=== PATIENT | male | born 1945 | race Caucasian/White ===

== ENCOUNTER → 2016-08-16 | Outpatient (CLI) | payer OTHER ==
[~2016-08-16] MED LIST: AMLO-114 PO; ASPI-461 PO; CHOL1TAB2 PO; COEN200C4 PO; CRD4 PO; CYAN10005 PO; GLC500 PO; INSUINJ12 SC; LISI-788 PO; OMEGCAP2 PO; PRAV20TA PO; PRLSR20 PO; REPA0.5T PO
[2016-08-16 12:54] LABS: ESTIMATED AVERAGE GLUCOSE 157 mg/dl; HA1C FLAG Normal (Normal)
--- NOTE | 2016-08-22 12:19 | CODING QUERY MEDICAL NECESSITY ---
SUPPORTING DIAGNOSIS NEEDED A supporting diagnosis is required for the test/procedure performed on this patient in order for us to be reimbursed by the patient's insurance. Please provide a supporting diagnosis for the following test/procedure listed below next to the test name along with your signature. *If there is no additional diagnosis for this patient that would support the following test/procedure please document that below next to the test/procedure. Test(s)/Procedure(s) that require a supporting diagnosis: DOS 08/16 * Hba1c DIAGNOSIS: Provider Signature: Date: Thank you Shena Grijalva [facility] Information Management Once completed, please kindly fax back to [phone] For questions please call [phone]
== END | disposition home or self-care (01) ==
LOC: C.LABBFT 07:34
PROVIDERS: ATTEND Internal Medicine Endocrinology, Diabetes & Metabolism
DX: G47.00 Insomnia, unspecified (principal); E78.5 Hyperlipidemia, unspecified; E11.49 Type 2 diabetes mellitus with other diabetic neurological complication

== ENCOUNTER → 2016-11-15 | Outpatient (CLI) | payer OTHER ==
[2016-11-15 12:24] LABS: BASO % 0.7 %; BASO ABS # 0.05 K/uL (0-0.2); COMPLETE YES; EOS % 6.3 %; HEMATOCRIT 43.7 % (42-52); IG% 0.3 %; LYMPH % 23.6 %; MEAN CELL VOLUME 89.5 fL (80-100); MEAN CORPUSCULAR HEMOGLOBIN 32.2 pg (25-34); MEAN CORPUSCULAR HGB CONC 35.9 g/dl (32-36); MEAN PLATELET VOLUME 9.7 fL (7.4-10.4); MONO % 10.2 %; NEUT % 58.9 %; PLATELET COUNT 272 K/uL (130-400); RED BLOOD COUNT 4.88 M/uL (4.7-6.1); WHITE BLOOD COUNT 7.63 K/uL (4.8-10.8)
[2016-11-15 12:30] LABS: MANUAL MICROSCOPIC REQUIRED? NO; REVIEW REQ? NO; URINE APPEARANCE CLEAR (CLEAR); URINE BILIRUBIN NEG (NEG); URINE COLOR YELLOW; URINE EPITHELIAL CELL AUTO 0-5 /lpf (0-5); URINE NITRITE NEG (NEG); URINE SPECIFIC GRAVITY 1.012 (1.000-1.030); UROBILINOGEN NEG (NEG); ZZUR CULT IF INDIC CLEAN CATCH NO
[2016-11-15 12:37] LABS: ESTIMATED AVERAGE GLUCOSE 157 mg/dl; HA1C FLAG Normal (Normal)
[2016-11-15 13:05] LABS: ALT/SGPT 36 U/L (12-78); AST/SGOT 23 U/L (15-37); BLOOD UREA NITROGEN 17 mg/dl (7-18); BUN/CREATININE RATIO 14.5 (10-20); CALCIUM 9.6 mg/dl (8.5-10.1); CARBON DIOXIDE 33 mmol/L (21-32); CHLORIDE 100 mmol/L (98-107); GLUCOSE 117 mg/dl (70-99); HDL CHOLESTEROL 33 mg/dl; POTASSIUM 3.7 mmol/L (3.5-5.1); SODIUM 138 mmol/L (136-145); TRIGLYCERIDES 265 mg/dl (0-150); VERY LOW DENSITY LIPOPROT CALC 53 mg/dl
[2016-11-15 13:13] LABS: ALKALINE PHOSPHATASE 55 U/L (45-117); CHOLESTEROL 226 mg/dl (0-200); CHOLESTEROL/HDL RATIO 6.8; LDL CHOLESTEROL CALCULATED 140 mg/dl
== END | disposition home or self-care (01) ==
LOC: C.LAB1850 11:00
PROVIDERS: ATTEND Nurse Practitioner Adult Health
DX: E11.49 Type 2 diabetes mellitus with other diabetic neurological complication (principal); I10 Essential (primary) hypertension; E78.5 Hyperlipidemia, unspecified

== ENCOUNTER → 2017-01-02 | Outpatient (CLI) | payer OTHER ==
--- NOTE | 2017-01-02 09:42 | DIAGNOSTIC IMAGING REPORT ---
KUB HISTORY:71 [id number] Benign prostatic hypertrophy with urinary [id number] COMPARISON: 11/03/2015 TECHNIQUE: KUB radiograph FINDINGS: No urolith identified. Bowel gas pattern is nonobstructive. No acute fracture. 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 Multilevel degenerative changes are seen throughout the spine. Imaged lung bases are clear. IMPRESSION: 1. No urolithiasis identified. 2. Nonobstructive bowel gas pattern. The above report was generated using voice recognition software. It may contain grammatical, syntax or spelling errors. Electronically signed by: Jhonatan Matthews 01/02/2017 9:40 AM Dictated Date/Time: 01/02/2017 9:38 AM
== END | disposition home or self-care (01) ==
LOC: C.RAD 09:11
PROVIDERS: ATTEND Urology
DX: N40.1 Benign prostatic hyperplasia with lower urinary tract symptoms (principal); N21.0 Calculus in bladder

== ENCOUNTER → 2017-02-28 | Outpatient (CLI) | payer OTHER ==
[2017-02-28 17:37] LABS: ALT/SGPT 54 U/L (12-78); AST/SGOT 32 U/L (15-37)
[2017-03-01 06:21] LABS: ESTIMATED AVERAGE GLUCOSE 151 mg/dl; HA1C FLAG Normal (Normal)
== END | disposition home or self-care (01) ==
LOC: C.LAB1850 16:17
PROVIDERS: ATTEND Nurse Practitioner Adult Health
DX: E11.49 Type 2 diabetes mellitus with other diabetic neurological complication (principal); K76.0 Fatty (change of) liver, not elsewhere classified; Z78.9 Other specified health status; E78.5 Hyperlipidemia, unspecified

== ENCOUNTER → 2017-09-05 | Outpatient (CLI) | payer OTHER | END | disposition home or self-care (01) | LOC: C.LABBFT 13:44 | PROVIDERS: ATTEND Internal Medicine | DX: R19.7 Diarrhea, unspecified (principal) ==

== ENCOUNTER → 2017-10-03 | Outpatient (CLI) | payer OTHER ==
[2017-10-03 12:50] LABS: BASO % 0.6 %; BASO ABS # 0.04 K/uL (0-0.2); EOS % 3.1 %; EOS ABS # 0.22 K/uL (0-0.5); HEMATOCRIT 39.1 % (42-52); HEMOGLOBIN 14.3 g/dL (14.0-18.0); IG# 0.03 K/uL (0.00-0.02); LYMPH % 20.7 %; LYMPH ABS # 1.46 K/uL (1.2-3.4); MEAN CELL VOLUME 88.1 fL (80-100); MEAN CORPUSCULAR HEMOGLOBIN 32.2 pg (25-34); MEAN CORPUSCULAR HGB CONC 36.6 g/dl (32-36); MONO % 10.5 %; MONO ABS # 0.74 K/uL (0.11-0.59); NEUT % 64.7 %; NEUT ABS # 4.56 K/uL (1.4-6.5); PLATELET COUNT 289 K/uL (130-400); RED CELL DISTRIBUTION WIDTH SD 41.8 fL (36.4-46.3); WHITE BLOOD COUNT 7.05 K/uL (4.8-10.8)
[2017-10-03 13:01] LABS: HEMOGLOBIN A1C 6.7 % (4.5-5.6)
[2017-10-03 13:11] LABS: ALT/SGPT 36 U/L (12-78); AST/SGOT 24 U/L (15-37); BLOOD UREA NITROGEN 15 mg/dl (7-18); CREATININE 1.23 mg/dl (0.60-1.40)
[2017-10-03 13:12] LABS: LDL CHOLESTEROL (DIRECT) 88 mg/dl
== END | disposition home or self-care (01) ==
LOC: C.LABBFT 10:31
PROVIDERS: ATTEND Physician Assistant Medical
DX: E11.49 Type 2 diabetes mellitus with other diabetic neurological complication (principal); Z79.4 Long term (current) use of insulin; E78.5 Hyperlipidemia, unspecified; R19.7 Diarrhea, unspecified

== ENCOUNTER → 2017-10-09 | Outpatient (CLI) | payer OTHER ==
[~2017-10-09] MED LIST changes: +OPTIRAY 320 IV PRN
--- NOTE | 2017-10-09 15:28 | DIAGNOSTIC IMAGING REPORT ---
ABD/PELVIS IV AND ORAL CONT CLINICAL HISTORY: 72 years-old Male presenting with R19.7 Diarrhea. TECHNIQUE: Multidetector CT of the abdomen and pelvis was performed after the administration of oral and intravenous contrast. IV contrast: 93 mL of Optiray 320. A dose lowering technique was used consistent with the principles of ALARA (as low as reasonably achievable). COMPARISON: 11/08/2012. CT DOSE (mGy.cm): The estimated cumulative dose is 480.36 mGy.cm. FINDINGS: Micro Paleontologist topogram: Unremarkable. Lung bases: Minimal basilar opacities, likely atelectasis. Mild bronchial wall thickening in the right lower lobe. Smooth interlobular septal thickening suggested. Subtle nodularity in a subpleural location along the medial basal right lower lobe is unchanged. Normal heart size. No pericardial or pleural effusion. Liver: Normal morphology. No liver lesion. Patent hepatic vasculature. Biliary: No intrahepatic or extrahepatic biliary ductal dilatation. Normal gallbladder. Pancreas: Normal. Spleen: Normal. Adrenal glands: Normal. Kidneys and ureters: Normal. No hydronephrosis. Bladder: Circumferential bladder wall thickening. Pelvic organs: Prostate enlargement likely secondary to benign prostatic hyperplasia. Bowel: Normal. No bowel obstruction. Peritoneal cavity: No free fluid or intraperitoneal gas. 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 Lymph nodes: No enlarged lymph nodes in the abdomen or pelvis. Vasculature: Atherosclerosis of the normal caliber abdominal aorta. IVC patent. Abdominal wall: Infiltration and skin thickening along the anterior abdominal wall greater on the left. Musculoskeletal: Degenerative changes of the spine. IMPRESSION: 1. No acute intra-abdominal pathology. No bowel obstruction. 2. Anterior abdominal wall skin thickening and subcutaneous infiltration could represent synovitis or be secondary to medication administration. Correlate clinically. 3. Chronic bladder outlet obstruction in the setting of prostatomegaly. 4. Mild congestive changes versus bronchitis suggested in the right lower lobe. Electronically signed by: Jose Maria Rivera M.D. 10/09/2017 3:26 PM Dictated Date/Time: 10/09/2017 3:20 PM
== END | disposition home or self-care (01) ==
LOC: C.CTS 14:43
PROVIDERS: ATTEND Physician Assistant Medical
DX: R93.5 Abnormal findings on diagnostic imaging of other abdominal regions, including retroperitoneum (principal); N40.1 Benign prostatic hyperplasia with lower urinary tract symptoms; R19.7 Diarrhea, unspecified

== ENCOUNTER 2023-04-13 20:39 | Observation (INO) ==
--- NOTE | 2023-04-13 20:43 | Emergency Department Note ---
Impression & Plan COPD (chronic obstructive pulmonary disease), Hypoxia, Hilar lymphadenopathy, LAD (lymphadenopathy), mediastinal, Hypomagnesemia ED Provider Note NAME: CORNELL GLASS AGE: 78 SEX: M ARRIVES VIA: Ambulance INFORMANT: Patient ED PROVIDER(S): Marco Zuniga MD CHIEF COMPLAINT: Low oxygen, referred. PLAN: Disposition: Admit MEDICAL DECISION MAKING: The patient is a pleasant 78-year-old gentleman with a past medical history of IDDM 2, ADALID, COPD, history of mediastinal and hilar lymphadenopathy who presents to the emergency department via EMS for evaluation of hypoxia with O2 saturation at home down to 79% on room air when awake but did improve somewhat to the mid 80s and once on his nocturnal oxygen for sleep was improved to the low 90s which occurs in the setting of having outpatient bronchoscopy/endobronchial ultrasound and biopsy today. The patient describes that he did not necessarily initially feel short of breath but thought it would be important to monitor his oxygen after his procedure and so his obtained a home pulse oximeter at the [facility] and began monitoring his O2. He does not regularly do this. However due to persistent low measurements he contacted pulmonology who referred the patient to the emergency department due to continued low readings despite attempting numerous repeat measurements. Per records, the patient has had mediastinal and bilateral hilar lymphadenopathy dating back to CT in 2021. The patient denies any chest pain or significant shortness of breath. He reports feeling fatigue and weakness. He denies nausea, vomiting or diarrhea. Appreciate call-in discussion with Dr. Moncada, Pulmonology, who performed bronchoscopy today and spoke to patient tonight. On evaluation the patient is no acute distress, afebrile blood pressure 170/80s, O2 saturation 94% on 2 L nasal cannula and vital signs otherwise stable. Upon trial of room air patient's O2 did decline to 87% and so placed back on oxygen. He appears clinically dry with capillary refill~3s. He has wheezes of bilateral lung scott, right greater than left. EKG without overt acute ischemia. Per my preliminary review chest x-ray is with out PTX and demonstrates vascular congestion with interstitial thickening and nodularity throughout both lungs similar to postprocedure chest x-ray from earlier today. Left midlung also opacities appear similar. WBC 12.6K, nonspecific. Hemoglobin and platelets within normal limits. Chemistry without metabolic acidosis. Magnesium 1.3 with repletion initiated. High-sensitivity troponin 15.1, within normal limits. Patient was treated with DuoNeb given patient's bronchospasm in addition to 500 cc of normal saline. The patient did report some improvement with nebulizer treatment though still with persistence of bronchospasm which she reports is not his baseline necessarily. Thus given additional IV steroids. For component of vascular congestion 20 mg of IV Lasix ordered following initial hydration provided. Given mild hypoxia from baseline and findings above the patient and family agree with plan for admission for further management. Case was discussed with ARELY Tafoya hospitalist, who will evaluate the patient for admission. Triage Nursing notes reviewed and agree them. Prior/outside medical records reviewed Vital Signs: reviewed Differential diagnosis: Reactive airway disease, pneumonia, pneumothorax, COPD, CHF, infections, cardiac ischemia, pulmonary embolism, musculoskeletal, gastrointestinal, as well as other pathologies. ER treatment provided: See below. Diagnostics interpreted by me: ECG: Sinus rhythm with sinus arrhythmia, occasional PVCs, 80 bpm, no overt ST elevation or depression, QTc 424, QRS 96. Cardiac Monitoring: An order for continuous cardiac monitoring was placed and demonstrated Sinus rhythm with sinus arrhythmia, occasional PVCs, 80 bpm. Laboratory studies: See below Imaging studies: See below Consultation(s): Case was discussed with ARELY Tafoya hospitalist, who will evaluate the patient for admission. HPI: The patient is a pleasant 78-year-old gentleman with a past medical history of IDDM 2, ADALID, COPD, history of mediastinal and hilar lymphadenopathy who presents to the emergency department via EMS for evaluation of hypoxia with O2 saturation at home down to 79% on room air when awake but did improve somewhat to the mid 80s and once on his nocturnal oxygen for sleep was improved to the low 90s which occurs in the setting of having outpatient bronchoscopy/endobronchial ultrasound and biopsy today. The patient describes that he did not necessarily initially feel short of breath but thought it would be important to monitor his oxygen after his procedure and so his obtained a home pulse oximeter at the pharmacy and began monitoring his O2. He does not regularly do this. However due to persistent low measurements he contacted pul monology who referred the patient to the emergency department due to continued low readings despite attempting numerous repeat measurements. Per records, the patient has had mediastinal and bilateral hilar lymphadenopathy dating back to CT in 2021. The patient denies any chest pain or significant shortness of breath. He reports feeling fatigue and weakness. He denies nausea, vomiting or diarrhea. Appreciate call-in discussion with Dr. Moncada, Pulmonology, who performed bronchoscopy today and spoke to patient tonight. ROS: See above HPI for pertinent positives & negatives. A total of 10 systems reviewed and were otherwise negative. VITALS:See Below PHYSICAL EXAMINATION: GENERAL: Awake, alert, in no distress HENT: Normocephalic, atraumatic. Oropharynx with dry mucous membranes and otherwise unremarkable. EYES: Normal conjunctiva. Sclera non-icteric. NECK: Supple. No nuchal rigidity. FROM. No JVD. RESPIRATORY: Wheezes of bilateral lung scott, right greater than left. CARDIAC: Regular rate, normal rhythm. Extremities warm and well perfused. Pulses equal. ABDOMEN: Soft, non-distended. No tenderness to palpation. No rebound or guarding. No masses. RECTAL: Deferred. MUSCULOSKELETAL: Chest examination reveals no tenderness. The back is symmetrical on inspection without obvious abnormality. There is no CVA tenderness to palpation. No joint edema. LOWER EXTREMITIES: Calves are equal size bilaterally and non-tender. No edema. No discoloration. NEURO: Normal sensorium. No sensory or motor deficits noted. SKIN: No rash or jaundice noted. Marco Zuniga MD Past Med/Surg History Medical History Celestin's esophagus BPH (benign prostatic hyperplasia) COPD (chronic obstructive pulmonary disease) Degenerative cervical spinal stenosis Diabetic peripheral neuropathy Dyslipidemia Fatty liver disease, nonalcoholic GERD (gastroesophageal reflux disease) History of COVID-19 2021- resolved Hyperlipidemia Hypertension Insomnia Kidney stone Hx Lumbar degenerative disc disease Mixed restrictive and obstructive lung disease Multiple pulmonary nodules ADALID (obstructive sleep apnea) CPAP Overweight (BMI 25.0-29.9) Polyneuropathy Skin cancer Hx basal cell Type 2 diabetes mellitus with neurologic complication, with long-term current use of insulin Surgical History History of appendectomy History of cataract surgery History of colonoscopy History of esophagogastroduodenoscopy (EGD) History of prostate surgery green light vaporization with cystoscopy and laser lithotripsy History of tonsillectomy Family History Mother Family history of diabetes mellitus Father Family history of diabetes mellitus Brother Family history of diabetes mellitus 2 Other No family history of adverse response to anesthesia Denies family history of Ovarian cancer Prostate cancer Coronary heart disease Breast cancer Colorectal cancer Social History Smoking Status: Former smoker Second Hand Exposure: Yes (mother and father smoked); Do You Dip or Chew Tobacco: No; Hx Alcohol Use: Yes Alcohol type: wine Alcohol Intake Frequency: Monthly or Less Hx Substance Use: No Preferred Language: Liberian Communication Ability: Effective Hearing Ability: Normal [place] Required: No Beliefs That Will Affect Care: None marital status: Current Living Situation: Spouse current occupational status: retired Feels Safe at Home: Yes Childhood Exposure to Second-Hand Smoke: Yes Diet: regular caffeine: Yes Dental Care, Regularly: Yes Physical Activity Frequency: 5-6 Times per Week Physical Activity Frequency Comment: walk Seatbelt Use: always Sunscreen Use: No Do you think of yourself as: straight/heterosexual Gender Identity: Male Assistive Devices: Cane, CPAP, Denture - Upper and Glasses Allergies Allergies Allergy/AdvReac Type Severity Reaction Status Date / Time ezetimibe Allergy Intermediate muscle Verified 04/13/23 10:14 aches finasteride Allergy Intermediate difficulty Verified 04/13/23 10:14 urinating, burning sensation gemfibrozil Allergy Intermediate muscle Verified 04/13/23 10:14 aches lovastatin Allergy Intermediate muscle Verified 04/13/23 10:14 aches simvastatin Allergy Intermediate leg Verified 04/13/23 10:14 crampimg and muscle aches tamsulosin Allergy Intermediate difficulty Verified 04/13/23 10:14 urinating, burning sensation sulfamethoxazole [Bactrim] Allergy Unknown hives Verified 04/13/23 10:14 trimethoprim [Bactrim] Allergy Unknown hives Verified 04/13/23 10:14 Home Meds Home Medications Medication Instructions Recorded Confirmed ascorbic acid (vitamin C) 500 mg 500 mg PO QAM 04/19/18 04/13/23 tablet (Vitamin C) aspirin 81 mg tablet,delayed 81 mg PO HS 04/19/18 04/13/23 release (Ninoska Low Dose Aspirin) cyanocobalamin (vitamin B-12) 1,000 mcg PO QAM 04/19/18 04/13/23 1,000 mcg tablet cholecalciferol (vitamin D3) 25 4,000 unit PO QAM 02/04/21 04/13/23 mcg (1,000 unit) tablet melatonin 10 mg tablet 5 mg PO HS PRN Insomnia 02/04/21 04/13/23 psyllium husk (with sugar) 3 1 tsp PO QAM 02/25/21 04/13/23 gram/7 gram oral powder (Daily Fiber (psyllium-sucrose)) Beet Root 1 tab PO DAILY 07/18/21 04/13/23 milk thistle 140 mg capsule 140 mg PO QAM 07/18/21 04/13/23 timolol maleate 0.5 % eye drops 1 drp OPB QAM 07/18/21 04/13/23 coenzyme Q10 100 mg capsule 200 mg PO QAM 08/01/22 04/13/23 (CoQ-10) omega 3-dta-lyf-fish oil 1,000 mg 3 cap PO DAILY 11/29/22 04/13/23 (120 mg-180 mg) capsule (Fish Oil) insulin glargine 100 unit/mL 26 unit subcut .9:00PM 01/05/23 04/13/23 subcutaneous solution (Lantus U-100 Insulin) fluticasone furoate 100 1 inh inhalation QPM 04/13/23 04/13/23 mcg-vilanterol 25 mcg/dose inhalation powder (Breo Ellipta) insulin aspart U-100 100 unit/mL 14 unit subcut TID 04/13/23 04/13/23 (3 mL) subcutaneous pen (Novolog FlexPen U-100 Insulin aspart) losartan 100 1 tab PO QAM 04/13/23 04/13/23 mg-hydrochlorothiazide 25 mg tablet nystatin 100,000 unit/gram topical 1 applic topical BID PRN 04/13/23 04/13/23 cream DIRECTED Previous Rx's Medication Instructions Recorded OneTouch Ultra Blue Test Strip #300 ea 12/30/20 (blood sugar diagnostic) CPAP Machine #1 ea 08/05/22 CPAP Supplies #1 ea 08/05/22 Oxygen Home #1 ea 08/22/22 potassium chloride 20 mEq 10 meq PO QAM #90 tabs 08/29/22 tablet,extended release pen needle, diabetic 32 gauge x #400 ea 11/11/22" (BD Laurita 2nd Gen Pen Needle) rosuvastatin 5 mg tablet 5 mg PO Q2D 90 days #45 tabs 11/16/22 terazosin 5 mg capsule 5 mg PO DAILY #90 caps 11/29/22 omeprazole 40 mg capsule,delayed 40 mg PO HS #90 caps 01/02/23 release albuterol sulfate 90 mcg/actuation 2 puff inhalation Q6H PRN 01/27/23 aerosol inhaler Shortness Of Breath Or Wheezing #18 grams Results & Data (ED) Vital Signs Vital Signs - 24 hr 04/13/23 20:46 04/13/23 20:46 04/13/23 20:46 Temperature 37.1 C Temperature Source Oral Pulse Rate 91 H Pulse Rate [Apical] Respiratory Rate 24 Respiratory Effort / Characteristics Non-Labored Spontaneous Respiratory Depth Shallow Blood Pressure 170/89 H Blood Pressure [Right Arm] Blood Pressure Mean 116 Blood Pressure Mean [Right Arm] Pulse Oximetry 94 94 Oxygen Delivery Method Nasal Cannula Nasal Cannula Nasal Cannula Oxygen Flow Rate 3 3 3 Sepsis Recent Fever Within 48 Hours No Sepsis New/Unexplained Change in Mental Status N/A Sepsis Action Taken by Nursing No Action Required 04/13/23 20:46 04/13/23 21:28 04/13/23 20:28 Temperature Temperature Source Pulse Rate 85 76 Pulse Rate [Apical] 78 Respiratory Rate 22 22 Respiratory Effort / Characteristics Respiratory Depth Blood Pressure Blood Pressure [Right Arm] 170/89 H Blood Pressure Mean Blood Pressure Mean [Right Arm] 116 Pulse Oximetry 94 94 Oxygen Delivery Method Nasal Cannula Nasal Cannula Oxygen Flow Rate 2 2 Sepsis Recent Fever Within 48 Hours Sepsis New/Unexplained Change in Mental Status Sepsis Action Taken by Nursing 04/13/23 22:30 04/13/23 23:15 Temperature Temperature Source Pulse Rate Pulse Rate [Apical] 75 74 Respiratory Rate 22 20 Respiratory Effort / Characteristics Respiratory Depth Blood Pressure Blood Pressure [Right Arm] 179/90 H 187/93 H Blood Pressure Mean Blood Pressure Mean [Right Arm] 119 124 Pulse Oximetry 94 100 Oxygen Delivery Method Nasal Cannula Room Air Oxygen Flow Rate 2 Sepsis Recent Fever Within 48 Hours Sepsis New/Unexplained Change in Mental Status Sepsis Action Taken by Nursing Laboratory Data Attestation: I reviewed the patient's lab results. 04/13/23 20:57 04/13/23 20:57 Lab Results 04/13/23 04/13/23 04/13/23 Range/Units 20:57 20:57 20:57 WBC 12.63 H (4.8-10.8) K/ul RBC 4.49 L (4.70-6.10) M/uL Hgb 14.6 (14.0-18.0) g/dl Hct 41.1 L (42.0-52.0) % MCV 91.5 (80.0-100.0) fL MCH 32.5 (25.0-34.0) pg MCHC 35.5 (32.0-36.0) g/dL RDW Std Deviation 42.0 (36.4-46.3) fL RDW Coeff of Delgado 12.6 (11.5-14.5) % Plt Count 215 (130-400) K/uL MPV 10.2 (9.4-12.4) fL Immature Gran % (Auto) 0.4 % Neut % (Auto) 80.5 % Lymph % (Auto) 7.2 % [place] % (Auto) 8.6 % Eos % (Auto) 2.8 % Baso % (Auto) 0.5 % Neut # (Auto) 10.18 H (1.40-6.50) K/uL Lymph # (Auto) 0.91 L (1.20-3.40) K/uL [place] # (Auto) 1.08 H (0.11-0.59) K/uL Eos # (Auto) 0.35 (0.00-0.50) K/uL Baso # (Auto) 0.06 (0.00-0.20) K/uL Immature Gran # (Auto) 0.05 (0.01-0.20) K/uL PT 11.9 (9.0-12.0) Seconds INR 1.1 (0.9-1.1) Sodium 137 (136-145) mmol/L Potassium 3.9 (3.5-5.1) mmol/L Chloride 99 (98-107) mmol/L Carbon Dioxide 29 (21-32) mmol/L Anion Gap 9 (3-11) BUN 17 (6-23) mg/dl Creatinine 0.95 (0.6-1.4) mg/dl Est Cr Clr Drug Dosing 67.6 ml/min Est GFR ( Amer) 87.3 ml/min Est GFR (Non-Af Amer) 75.3 ml/min BUN/Creatinine Ratio 17.9 (10-20) Glucose 154 H (70-99(Fasting)) mg/dl Calcium 10.1 (8.6-10.3) mg/dl Magnesium 1.3 L (1.7-2.4) mg/dl Total Bilirubin 1.2 H (0.2-1.0) mg/dl AST 23 (13-39) U/L ALT 20 (7-52) U/L Alkaline Phosphatase 52 (34-104) U/L Troponin I High Sens 15.1 (0-20) pg/ml B-Natriuretic Peptide (0-100) pg/ml Total Protein 7.3 (6.0-8.3) gm/dl Albumin 4.2 (3.4-5.0) gm/dl Globulin 3.1 (2.5-4.0) gm/dl Albumin/Globulin Ratio 1.4 (0.9-2) Lipase 15 (11-82) U/L Procalcitonin (0-0.5) ng/ml 04/13/23 04/13/23 Range/Units 20:57 22:58 WBC (4.8-10.8) K/ul RBC (4.70-6.10) M/uL Hgb (14.0-18.0) g/dl Hct (42.0-52.0) % MCV (80.0-100.0) fL MCH (25.0-34.0) pg MCHC (32.0-36.0) g/dL RDW Std Deviation (36.4-46.3) fL RDW Coeff of Delgado (11.5-14.5) % Plt Count (130-400) K/uL MPV (9.4-12.4) fL Immature Gran % (Auto) % Neut % (Auto) % Lymph % (Auto) % [place] % (Auto) % Eos % (Auto) % Baso % (Auto) % Neut # (Auto) (1.40-6.50) K/uL Lymph # (Auto) (1.20-3.40) K/uL [place] # (Auto) (0.11-0.59) K/uL Eos # (Auto) (0.00-0.50) K/uL Baso # (Auto) (0.00-0.20) K/uL Immature Gran # (Auto) (0.01-0.20) K/uL PT (9.0-12.0) Seconds INR (0.9-1.1) Sodium (136-145) mmol/L Potassium (3.5-5.1) mmol/L Chloride (98-107) mmol/L Carbon Dioxide (21-32) mmol/L Anion Gap (3-11) BUN (6-23) mg/dl Creatinine (0.6-1.4) mg/dl Est Cr Clr Drug Dosing ml/min Est GFR ( Amer) ml/min Est GFR (Non-Af Amer) ml/min BUN/Creatinine Ratio (10-20) Glucose (70-99(Fasting)) mg/dl Calcium (8.6-10.3) mg/dl Magnesium (1.7-2.4) mg/dl Total Bilirubin (0.2-1.0) mg/dl AST (13-39) U/L ALT (7-52) U/L Alkaline Phosphatase (34-104) U/L Troponin I High Sens (0-20) pg/ml B-Natriuretic Peptide 65 (0-100) pg/ml Total Protein (6.0-8.3) gm/dl Albumin (3.4-5.0) gm/dl Globulin (2.5-4.0) gm/dl Albumin/Globulin Ratio (0.9-2) Lipase (11-82) U/L Procalcitonin < 0.05 (0-0.5) ng/ml Administered Medications Discontinued Medications Albuterol (Albut/Ipratrop 3mg/0.5mg Neb 3 Ml Vial) 3 ml NEB NOW STA; Protocol Stop: 04/13/23 21:33 Last Admin: 04/13/23 21:38 Dose: 3 ml Documented By: BLOSSOM Furosemide (Furosemide Inj 20 Mg/2 Ml Vial) 20 mg IV ONE ONE Stop: 04/13/23 22:27 Last Admin: 04/13/23 23:11 Dose: 20 mg Documented By: LATESHA Sodium Chloride (Nss) 500 mls @ 999 mls/hr IV .Q31M ONE Stop: 04/13/23 22:02 Last Infusion: 04/13/23 22:50 Dose: 999 mls/hr Documented By: Admin: 04/13/23 21:39 Dose: 999 mls/hr Documented By: BLOSSOM Magnesium Sulfate/Dextrose (Magnesium Sulfate / D5w) 1 gm in 100 mls @ 100 mls/hr IV Q1H ISAIAH Stop: 04/14/23 00:06 Last Admin: 04/13/23 23:14 Dose: 100 mls/hr Documented By: LATESHA Methylprednisolone (Methylprednisolone 125 Mg/2 Ml Vial) 125 mg IV NOW STA Stop: 04/13/23 22:47 Last Admin: 04/13/23 23:11 Dose: 125 mg Documented By: LATESHA Imaging Data My Impression: CXR: Per my preliminary review chest x-ray is without PTX and demonstrates vascular congestion with interstitial thickening and nodularity throughout both lungs similar to postprocedure chest x-ray from earlier today. Left midlung also opacities appear similar. Discharge Plan Visit Data Chief Complaint: Shortness of Breath/Dyspnea Stated Complaint: LOW O2, RECENT BIOPSY ED Provider: Marco Zuniga Discharge Problem: COPD (chronic obstructive pulmonary disease), Hypoxia, Hilar lymphadenopathy, LAD (lymphadenopathy), mediastinal, Hypomagnesemia Forms Stand Alone Forms: My [facility] [employer] Prescriptions Prescriptions: No Action (DME) OneTouch Ultra Blue Test Strip Strip See Rx Instructions .ROUTE .MEDSUPPLY Qty: 300 3RF Rx Instructions: test blood sugar 3 x daily potassium chloride 20 mEq tablet extended release 10 meq PO QAM Qty: 90 3RF (DME) pen needle, diabetic [BD Laurita 2nd Gen Pen Needle] 32 gauge x 5/32" needle See Rx Instructions miscellaneous .MEDSUPPLY Qty: 400 3RF Rx Instructions: Change new pen needle 4x a day terazosin 5 mg capsule 5 mg PO DAILY Qty: 90 3RF omeprazole 40 mg capsule,delayed release(DR/EC) 40 mg PO HS Qty: 90 3RF (DME) CPAP Machine Misc See Rx Instructions .MEDSUPPLY Qty: 1 0RF Rx Instructions: CPAP 10 cm of water with a C-Flex of 1 and oxygen 1 L/min bled into it, ResMed AirFit F20 medium full mask. G47.33 (DME) CPAP Supplies Misc See Rx Instructions .MEDSUPPLY Qty: 1 0RF Rx Instructions: CPAP supplies, mask, headgear, filters, tubing, water chamber. G47.33 (DME) Oxygen Home Liters Per Minute See Rx Instructions .MEDSUPPLY Qty: 1 0RF Rx Instructions: 1 L oxygen bled into the CPAP albuterol sulfate 90 mcg/actuation HFA aerosol inhaler 2 puff inhalation Q6H PRN (Reason: Shortness Of Breath Or Wheezing) Qty: 18 3RF cholecalciferol (vitamin D3) 25 mcg (1,000 unit) tablet 4,000 unit PO QAM melatonin 10 mg tablet 5 mg PO HS PRN (Reason: Insomnia) rosuvastatin 5 mg tablet 5 mg PO Q2D 90 Days Qty: 45 2RF cyanocobalamin (vitamin B-12) 1,000 mcg Tablet 1,000 mcg PO QAM aspirin [Ninoska Low Dose Aspirin] 81 mg Tablet,Delayed Release (Dr/Ec) 81 mg PO HS ascorbic acid (vitamin C) [Vitamin C] 500 mg Tablet 500 mg PO QAM omega 5-zfp-wpi-fish oil [Fish Oil] 1,000 mg (120 mg-180 mg) capsule 3 cap PO DAILY Rx Instructions: 2 tabs am, 1 tab pm losartan-hydrochlorothiazide 100-25 mg tablet 1 tab PO QAM Rx Instructions: Take 1 tablet by mouth once daily nystatin 100,000 unit/gram cream 1 applic topical BID PRN (Reason: DIRECTED) insulin aspart U-100 [Novolog FlexPen U-100 Insulin] 100 unit/mL (3 mL) insulin pen 14 unit subcut TID MDD 45 unit fluticasone furoate-vilanterol [Breo Ellipta] 100-25 mcg/dose blister with device 1 inh inhalation QPM Daily Fiber (psyllium-sucrose) 3 gram/7 gram Powder 1 tsp PO QAM milk thistle 140 mg Capsule 140 mg PO QAM Beet Root 1 tab PO DAILY timolol maleate 0.5 % drops 1 drp OPB QAM coenzyme Q10 [CoQ-10] 100 mg capsule 200 mg PO QAM insulin glargine [Lantus U-100 Insulin] 100 unit/mL solution 26 unit subcut .9:00PM Rx Instructions: Inject Lantus 1x a day 26 units. (This replaces your NPH or cloudy insulin) Referrals Referrals: Manan Holt MD [Primary Care Provider] - COPD (chronic obstructive pulmonary disease) Qualifiers: COPD type: unspecified COPD Qualified Code(s): J44.9 - Chronic obstructive pulmonary disease, unspecified
[2023-04-13 21:27] LABS: Basophils # (auto) 0.06 K/uL (0.00-0.20); Basophils % (auto) 0.5 %; Eosinophils # (auto) 0.35 K/uL (0.00-0.50); Eosinophils % (auto) 2.8 %; Hematocrit (blood only) 41.1 % (42.0-52.0); Hemoglobin 14.6 g/dl (14.0-18.0); Immature Granulocytes # (auto) 0.05 K/uL (0.01-0.20); Immature Granulocytes % (auto) 0.4 %; Lymphocytes # (auto) 0.91 K/uL (1.20-3.40); Lymphocytes % (auto) 7.2 %; Mean Corpuscular Hemoglobin 32.5 pg (25.0-34.0); Mean Corpuscular Hgb Conc 35.5 g/dL (32.0-36.0); Mean Corpuscular Volume 91.5 fL (80.0-100.0); Mean Platelet Volume 10.2 fL (9.4-12.4); Monocytes # (auto) 1.08 K/uL (0.11-0.59); Monocytes % (auto) 8.6 %; Neutrophils # (auto) 10.18 K/uL (1.40-6.50); Neutrophils % (auto) 80.5 %; Platelet Count 215 K/uL (130-400); RDW Coefficient of Variation 12.6 % (11.5-14.5); Red Blood Count 4.49 M/uL (4.70-6.10); White Blood Count 12.63 K/ul (4.8-10.8)
[2023-04-13] MEDS ORDERED: ALBUT/IPRATROP 3MG/0.5MG NEB 3 ML VIAL NEB STA (21:32)
[2023-04-13] MEDS ORDERED: SODIUM CHLORIDE 0.9% 500 ML IV ONE (21:32)
[2023-04-13 21:46] LABS: INR 1.1 (0.9-1.1); Prothrombin Time 11.9 Seconds (9.0-12.0)
[2023-04-13 21:53] LABS: Albumin Globulin Ratio 1.4 (0.9-2); Albumin Level 4.2 gm/dl (3.4-5.0); BUN Creatinine Ratio 17.9 (10-20); Bilirubin,Total 1.2 mg/dl (0.2-1.0); Calcium 10.1 mg/dl (8.6-10.3); Creatinine Clr Calc Pharmacy 67.6 ml/min; Est GFR (African American) 87.3 ml/min; Est GFR (Non-African American) 75.3 ml/min; Globulin 3.1 gm/dl (2.5-4.0); Magnesium 1.3 mg/dl (1.7-2.4); Total Protein 7.3 gm/dl (6.0-8.3); Troponin I High Sensitivity 15.1 pg/ml (0-20)
[2023-04-13 21:59] LABS: Potassium 3.9 mmol/L (3.5-5.1)
[2023-04-13] MEDS ORDERED: FUROSEMIDE INJ 20 MG/2 ML VIAL IV ONE (22:26)
[2023-04-13] MEDS ORDERED: methylPREDNISolone 125 MG/2 ML VIAL IV STA (22:46)
--- NOTE | 2023-04-13 23:07 | History & Physical Report ---
Date of Service April 13, 2023 Assessment & Plan (1) Hypoxia: Plan: 78yo male with COPD, restrictive lung disease s/p EBUS with transbronchial needle aspiration of mediastinal hilar lymph node and BAL of the JESUS performed in [facility] earlier today by Dr. Moncada. The procedure was well tolerated. Pathology specimens pending. Patient reports some elevation of body temperature currently. Diffuse wheezing end-expiratory. Hypoxic on arrival now improved on 2L NC. Ddx to include bronchospasm/COPD, less likely PNA, possible aspiration event during procedure? Patient does not appear to be grossly volume overloaded - he is being given Lasix 20mg IV now. No distress. No pneumothorax. -Admit to medical -Maintain supplemental O2 -Treatment for presumed COPD with DuoNebs q 4 hours, Albuterol nebs q 2 hours PRN, Solumedrol 40mg IV TID -Low threshold to start antibiotics - will hold for now given normal Procalcitonin -Check SARS-CoV-2 (2) COPD (chronic obstructive pulmonary disease): Plan: Management as above -DuoNebs, Albuterol, Solumedrol -Continue Breo-Ellipta (3) ADALID (obstructive sleep apnea): Plan: Chronic. Patient reports compliance with CPAP and nocturnal oxygen at home -Continue CPAP -Supplemental O2 qHS (4) Controlled diabetes mellitus with neurologic complication, with long-term current use of insulin: Plan: Last [id number] on 04/11/23 -Lantus 10u BID -ISS -Goal blood sugar 110-140 (5) Hypertension: Plan: Blood pressure elevated -Continue Losartan/HCTZ History of Present Illness Chief Complaint: hypoxia Primary Care Provider: Manan Holt MD Sunil Cruz is a pleasant 78yo male with history of COPD and restrictive lung disease on nocturnal O2, ADALID on CPAP, HTN, HLP and DM presenting from home with hypoxia. Patient had an EBUS with biopsy performed by Dr. Moncada today. The procedure was uncomplicated and well tolerated. When he returned home he decided to check his pulse oxygen level. He was found to be 79% on room air at rest. He denies chest pain, cough, SOB. No dizziness. He called EMS and was confirmed to be hypoxic at 79%. He was placed on 2L NC which improved saturation to 89%. They increased supplemental O2 to 4L with improvement to 94%. Patient does report some wheezing now as well as dry cough and a mild elevated temperature since the bronchoscopy. In the ER he is afebrile, HD stable. Adequate oxygenation on 2L NC. ER Course: Lasix 20mg IV NSS x 500mL Albuterol 3mL neb Solumedrol 125mg IV Magnesium x 1gm Allergies Allergy/AdvReac Type Severity Reaction Status Date / Time ezetimibe Allergy Intermediate muscle Verified 04/13/23 10:14 aches finasteride Allergy Intermediate difficulty Verified 04/13/23 10:14 urinating, burning sensation gemfibrozil Allergy Intermediate muscle Verified 04/13/23 10:14 aches lovastatin Allergy Intermediate muscle Verified 04/13/23 10:14 aches simvastatin Allergy Intermediate leg Verified 04/13/23 10:14 crampimg and muscle aches tamsulosin Allergy Intermediate difficulty Verified 04/13/23 10:14 urinating, burning sensation sulfamethoxazole [Bactrim] Allergy Unknown hives Verified 04/13/23 10:14 trimethoprim [Bactrim] Allergy Unknown hives Verified 04/13/23 10:14 Home Medications Medication Instructions Recorded Confirmed Type ascorbic acid (vitamin C) 500 mg 500 mg PO QAM 04/19/18 04/13/23 History tablet (Vitamin C) aspirin 81 mg tablet,delayed 81 mg PO HS 04/19/18 04/13/23 History release (Ninoska Low Dose Aspirin) cyanocobalamin (vitamin B-12) 1,000 mcg PO QAM 04/19/18 04/13/23 History 1,000 mcg tablet OneTouch Ultra Blue Test Strip #300 ea 12/30/20 04/13/23 Rx (blood sugar diagnostic) cholecalciferol (vitamin D3) 25 4,000 unit PO QAM 02/04/21 04/13/23 History mcg (1,000 unit) tablet melatonin 10 mg tablet 5 mg PO HS PRN Insomnia 02/04/21 04/13/23 History psyllium husk (with sugar) 3 1 tsp PO QAM 02/25/21 04/13/23 History gram/7 gram oral powder (Daily Fiber (psyllium-sucrose)) Beet Root 1 tab PO DAILY 07/18/21 04/13/23 History milk thistle 140 mg capsule 140 mg PO QAM 07/18/21 04/13/23 History timolol maleate 0.5 % eye drops 1 drp OPB QAM 07/18/21 04/13/23 History coenzyme Q10 100 mg capsule 200 mg PO QAM 08/01/22 04/13/23 History (CoQ-10) CPAP Machine #1 ea 08/05/22 04/13/23 Rx CPAP Supplies #1 ea 08/05/22 04/13/23 Rx Oxygen Home #1 ea 08/22/22 04/13/23 Rx potassium chloride 20 mEq 10 meq PO QAM #90 tabs 08/29/22 04/13/23 Rx tablet,extended release pen needle, diabetic 32 gauge x #400 ea 11/11/22 04/13/23 Rx 5/32" (BD Laurita 2nd Gen Pen Needle) rosuvastatin 5 mg tablet 5 mg PO Q2D 90 days #45 tabs 11/16/22 04/13/23 Rx omega 1-rgf-eec-fish oil 1,000 mg 3 cap PO DAILY 11/29/22 04/13/23 History (120 mg-180 mg) capsule (Fish Oil) terazosin 5 mg capsule 5 mg PO DAILY #90 caps 11/29/22 04/13/23 Rx omeprazole 40 mg capsule,delayed 40 mg PO HS #90 caps 01/02/23 04/13/23 Rx release insulin glargine 100 unit/mL 26 unit subcut .9:00PM 01/05/23 04/13/23 History subcutaneous solution (Lantus U-100 Insulin) albuterol sulfate 90 mcg/actuation 2 puff inhalation Q6H PRN 01/27/23 04/13/23 Rx aerosol inhaler Shortness Of Breath Or Wheezing #18 grams fluticasone furoate 100 1 inh inhalation QPM 04/13/23 04/13/23 History mcg-vilanterol 25 mcg/dose inhalation powder (Breo Ellipta) insulin aspart U-100 100 unit/mL 14 unit subcut TID 04/13/23 04/13/23 History (3 mL) subcutaneous pen (Novolog FlexPen U-100 Insulin aspart) losartan 100 1 tab PO QAM 04/13/23 04/13/23 History mg-hydrochlorothiazide 25 mg tablet nystatin 100,000 unit/gram topical 1 applic topical BID PRN 04/13/23 04/13/23 History cream DIRECTED Past Med/Surg History Medical History Celestin's esophagus BPH (benign prostatic hyperplasia) COPD (chronic obstructive pulmonary disease) Degenerative cervical spinal stenosis Diabetic peripheral neuropathy Dyslipidemia Fatty liver disease, nonalcoholic GERD (gastroesophageal reflux disease) History of COVID-2021- resolved Hyperlipidemia Hypertension Insomnia Kidney stone Hx Lumbar degenerative disc disease Mixed restrictive and obstructive lung disease Multiple pulmonary nodules ADALID (obstructive sleep apnea) CPAP Overweight (BMI 25.0-29.9) Polyneuropathy Skin cancer Hx basal cell Type 2 diabetes mellitus with neurologic complication, with long-term current use of insulin Surgical History History of appendectomy History of cataract surgery History of colonoscopy History of esophagogastroduodenoscopy (EGD) History of prostate surgery green light vaporization with cystoscopy and laser lithotripsy History of tonsillectomy Family History Mother Family history of diabetes mellitus Father Family history of diabetes mellitus Brother Family history of diabetes mellitus 2 Other No family history of adverse response to anesthesia Denies family history of Ovarian cancer Prostate cancer Coronary heart disease Breast cancer Colorectal cancer Social History Smoking Status: Former smoker Second Hand Exposure: Yes (mother and father smoked); Do You Dip or Chew Tobacco: No; Hx Alcohol Use: Yes Alcohol type: wine Alcohol Intake Frequency: Monthly or Less Hx Substance Use: No Preferred Language: Lithuanian Communication Ability: Effective Hearing Ability: Normal Cartography/Mapping Technician Required: No Beliefs That Will Affect Care: None marital status: Current Living Situation: Spouse current occupational status: retired Feels Safe at Home: Yes Childhood Exposure to Second-Hand Smoke: Yes Diet: regular caffeine: Yes Dental Care, Regularly: Yes Physical Activity Frequency: 5-6 Times per Week Physical Activity Frequency Comment: walk Seatbelt Use: always Sunscreen Use: No Do you think of yourself as: straight/heterosexual Gender Identity: Male Assistive Devices: Cane, CPAP, Denture - Upper and Glasses Review of Systems Review of Systems: All systems reviewed & are unremarkable except as noted in HPI & below Physical Exam Physical Exam: General: patient resting comfortably, NAD, non-toxic in appearance, AA&O x 4 Skin: warm, dry, intact, no rashes or lesions HEENT: NC/AT, PERRL, EOMI, anicteric sclera, conjunctiva without injection, external ear normal to inspection and nontender, nares patent, moist mucus membranes, dentition intact, no oropharyngeal lesions, neck supple, trachea midline, no LAD, no thyromegaly, no JVD Heart: +S1/S2, regular, no m/r/g Lungs: equal air entry bilaterally,no rales/rhonchi, diffuse end-expiratory wheezing Abd: +BS, soft, NT/ND, no masses/organomegaly/ascites Ext: warm, 2+ pulses in UE/LE bilaterally, no clubbing/cyanosis or edema Neuro: nonfocal, patient AA&O x 4, speech intact, no facial droop, moving all extremities on command with equal strength 5/5 Results & Data Results & Data Vital Signs (Past 12 Hours) Vital Signs Temp Pulse Pulse Resp BP BP Pulse Ox 04/13/23 20:28 78 22 170/89 H 94 04/13/23 21:28 76 22 94 04/13/23 20:46 85 04/13/23 20:46 94 04/13/23 20:46 37.1 C 91 H 24 170/89 H 94 04/13/23 20:46 O2 Del Method O2 Flow Rate 04/13/23 20:28 Nasal Cannula 2 04/13/23 21:28 Nasal Cannula 2 04/13/23 20:46 04/13/23 20:46 Nasal Cannula 3 04/13/23 20:46 Nasal Cannula 3 04/13/23 20:46 Nasal Cannula 3 Laboratory Results Laboratory Results WBC 12.63 K/ul (4.8-10.8) H 04/13/23 20:57 RBC 4.49 M/uL (4.70-6.10) L 04/13/23 20:57 Hgb 14.6 g/dl (14.0-18.0) 04/13/23 20:57 Hct 41.1 % (42.0-52.0) L 04/13/23 20:57 MCV 91.5 fL (80.0-100.0) 04/13/23 20:57 MCH 32.5 pg (25.0-34.0) 04/13/23 20:57 MCHC 35.5 g/dL (32.0-36.0) 04/13/23 20:57 RDW Std Deviation 42.0 fL (36.4-46.3) 04/13/23 20:57 RDW Coeff of Delgado 12.6 % (11.5-14.5) 04/13/23 20:57 Plt Count 215 K/uL (130-400) 04/13/23 20:57 MPV 10.2 fL (9.4-12.4) 04/13/23 20:57 Immature Gran % (Auto) 0.4 % 04/13/23 20:57 Neut % (Auto) 80.5 % 04/13/23 20:57 Lymph % (Auto) 7.2 % 04/13/23 20:57 Beltrami % (Auto) 8.6 % 04/13/23 20:57 Eos % (Auto) 2.8 % 04/13/23 20:57 Baso % (Auto) 0.5 % 04/13/23 20:57 Neut # (Auto) 10.18 K/uL (1.40-6.50) H 04/13/23 20:57 Lymph # (Auto) 0.91 K/uL (1.20-3.40) L 04/13/23 20:57 Beltrami # (Auto) 1.08 K/uL (0.11-0.59) H 04/13/23 20:57 Eos # (Auto) 0.35 K/uL (0.00-0.50) 04/13/23 20:57 Baso # (Auto) 0.06 K/uL (0.00-0.20) 04/13/23 20:57 Immature Gran # (Auto) 0.05 K/uL (0.01-0.20) 04/13/23 20:57 PT 11.9 Seconds (9.0-12.0) 04/13/23 20:57 INR 1.1 (0.9-1.1) 04/13/23 20:57 Sodium 137 mmol/L (136-145) 04/13/23 20:57 Potassium 3.9 mmol/L (3.5-5.1) 04/13/23 20:57 Chloride 99 mmol/L (98-107) 04/13/23 20:57 Carbon Dioxide 29 mmol/L (21-32) 04/13/23 20:57 Anion Gap 9 (3-11) 04/13/23 20:57 BUN 17 mg/dl (6-23) 04/13/23 20:57 Creatinine 0.95 mg/dl (0.6-1.4) 04/13/23 20:57 Est Cr Clr Drug Dosing 67.6 ml/min 04/13/23 20:57 Est GFR ( Amer) 87.3 ml/min 04/13/23 20:57 Est GFR (Non-Af Amer) 75.3 ml/min 04/13/23 20:57 BUN/Creatinine Ratio 17.9 (10-20) 04/13/23 20:57 Glucose 154 mg/dl (70-99(Fasting)) H 04/13/23 20:57 Calcium 10.1 mg/dl (8.6-10.3) 04/13/23 20:57 Magnesium 1.3 mg/dl (1.7-2.4) L 04/13/23 20:57 Total Bilirubin 1.2 mg/dl (0.2-1.0) H 04/13/23 20:57 AST 23 U/L (13-39) 04/13/23 20:57 ALT 20 U/L (7-52) 04/13/23 20:57 Alkaline Phosphatase 52 U/L (34-104) 04/13/23 20:57 Troponin I High Sens 15.1 pg/ml (0-20) 04/13/23 20:57 B-Natriuretic Peptide 65 pg/ml (0-100) 04/13/23 22:58 Total Protein 7.3 gm/dl (6.0-8.3) 04/13/23 20:57 Albumin 4.2 gm/dl (3.4-5.0) 04/13/23 20:57 Globulin 3.1 gm/dl (2.5-4.0) 04/13/23 20:57 Albumin/Globulin Ratio 1.4 (0.9-2) 04/13/23 20:57 Lipase 15 U/L (11-82) 04/13/23 20:57 Procalcitonin < 0.05 ng/ml (0-0.5) 04/13/23 20:57 Diagnostic Findings CXR from ER - per my interpretation - appears to have some mild increase in airspace opacities, no pneumothorax SINGLE VIEW CHEST CLINICAL HISTORY: Status post bronchoscopy. FINDINGS: An AP, portable, upright chest radiograph is compared to study dated 03/07/2022 and correlated with chest CT dated 04/07/2023. The examination is degraded by portable technique and apical lordotic positioning. The heart is enlarged. There is pulmonary vascular congestion. Foci of probable scarring and nodularity are again seen throughout both lungs. There are new airspace opacities in the left midlung. No large pleural effusion is identified. No pneumothorax is seen. The skeletal structures are osteopenic. The bony thorax is grossly intact. IMPRESSION: 1. No pneumothorax is seen post procedure. 2. Cardiomegaly with pulmonary vascular congestion. 3. There are new airspace opacities in the left midlung which may represent postbiopsy change. Correlate clinically for evidence of a nonspecific pneumonitis. Follow-up radiographically if indicated. ACT 112: Negative or not required by law. Electronically signed by: Saúl Luna M.D. 04/13/2023 1:43 PM Dictated:04/13/23 1341 Transcribed: 04/13/23 1341 ECG Additional Comments: EKG per my interpretation shows ST at 111 bpm, left axis deviation, KI=474, QRs=94, OJp=156, no acute ischemic changes Code Status & VTE Plan VTE Prophylaxis Plan VTE Prophylaxis will be ordered: Yes PG Care Time/CCT Total # of Minutes Spent Total Time Spent with Patient: Total time spent is greater than 50% in coordination of care (as documented) at patient's floor/unit and/or counseling patient: Coding Level of Care Code 39523 INT INP/OBS CARE 3/75MIN Diagnoses Hypoxia R09.02 COPD (chronic obstructive pulmonary disease) J44.9 ADALID (obstructive sleep apnea) G47.33 Controlled diabetes mellitus with neurologic complication, with long-term current use of insulin E11.49; Z79.4 Hypertension I10
[2023-04-13] MEDS: MAGNESIUM SULFATE / D5W 1 GM/100 ML BAG IV SCH (23:14)
[2023-04-14] MEDS: MAGNESIUM SULFATE / D5W 1 GM/100 ML BAG IV SCH (01:19)
[2023-04-14] MEDS ORDERED: CARBOHYDRATES FOR HYPOGLYCEMIA PO PRN (03:46)
[2023-04-14] MEDS ORDERED: ROSUVASTATIN CALCIUM 5 MG TAB PO SCH (03:46)
[2023-04-14] MEDS ORDERED: ALBUTEROL 0.5% NEB SOLN 2.5 MG/0.5 ML VIAL NEB PRN (03:46)
[2023-04-14] MEDS ORDERED: GLUCOSE 10 TAB/TUBE PO PRN (03:46)
[2023-04-14] MEDS ORDERED: ONDANSETRON INJ 2 MG/ML 2 ML VIAL IV PRN (03:46)
[2023-04-14] MEDS ORDERED: GLUCAGON FOR INJ 1 MG VIAL SQ PRN (03:46)
[2023-04-14] MEDS ORDERED: GLUCOSE 40% GEL 15 GM TUBE PO PRN (03:46)
[2023-04-14] MEDS ORDERED: ACETAMINOPHEN 325 MG TAB PO PRN (03:46)
[2023-04-14] MEDS ORDERED: MELATONIN 3 MG TAB PO PRN (03:46)
[2023-04-14] MEDS ORDERED: DEXTROSE 50% 50 ML SYRINGE IV PRN (03:46)
[2023-04-14] MEDS: ALBUT/IPRATROP 3MG/0.5MG NEB 3 ML VIAL NEB SCH ×3 (04:16→10:37)
[2023-04-14 04:28] LABS: Phosphorus 2.8 mg/dl (2.5-4.9)
[2023-04-14] MEDS: methylPREDNISolone 40 MG in SYRINGE 0 ML IV SCH ×2 (05:14→12:27)
[2023-04-14 07:29] LABS: Hematocrit (blood only) 38.9 % (42.0-52.0); Hemoglobin 13.8 g/dl (14.0-18.0); Mean Corpuscular Hemoglobin 32.4 pg (25.0-34.0); Mean Corpuscular Hgb Conc 35.5 g/dL (32.0-36.0); Mean Corpuscular Volume 91.3 fL (80.0-100.0); Platelet Count 212 K/uL (130-400); RDW Coefficient of Variation 12.3 % (11.5-14.5); Red Blood Count 4.26 M/uL (4.70-6.10); White Blood Count 8.79 K/ul (4.8-10.8)
--- NOTE | 2023-04-14 07:33 | XRay Report ---
XR chest 1V portable HISTORY: 78 years-old Male hypoxia after bronch acute hypoxia COMPARISON: Chest radiograph of same day at 1:30 PM, chest CT 04/07/2023 TECHNIQUE: AP view of the chest FINDINGS: Cardiac silhouette is enlarged. Stable linear consolidative perihilar opacities with interstitial coa rsening. Pulmonary vascular congestion. No pneumothorax or large pleural effusion. Degenerative reyes es of the shoulders and spine. IMPRESSION: 1. Cardiomegaly with pulmonary vascular congestion. 2. Stable linear perihilar consolidation with mild reticular nodular opacities, better seen on the pr ior chest CT. ACT 112: Negative or not required by law. The above report was generated using voice recognition software. It may contain grammatical, syntax o r spelling errors. Electronically signed by: Abelino Matthews M.D. 04/14/2023 7:32 AM
--- NOTE | 2023-04-14 07:57 | Hospitalist Progress Note ---
Date of Service April 14, 2023 Assessment & Plan (1) Hypoxia: Plan: 78yo male with COPD, restrictive lung disease s/p EBUS with transbronchial needle aspiration of mediastinal hilar lymph node and BAL of the JESUS performed in Pulmonary Clinic 04/[address] Moncada. The procedure was well tolerated. Pathology specimens pending. Patient reports some elevation of body temperature currently. Diffuse wheezing end-expiratory. Hypoxic on arrival now improved on 2L NC. Ddx to include bronchospasm/COPD, less likely PNA, possible aspiration event during procedure? Patient does not appear to be grossly volume overloaded - he was given Lasix 20mg IV in ER No distress. No pneumothorax. COVID negative On 4L --> down to 2L Reporting less wheezing, +cough but no sputum production Procal negative Mag replacement ordered, mag wnl on repeat Tx COPD/pneuomonitis from bronchoscopy Transitioning IV solumedrol to prednisone 40mg PO daily and plan 5 day course Duonebs, hypertonic saline, mucinex, pulmonary toilet Repeat CXR obtained, +pulmonary edema on review Additional 20mg IV lasix for today -- monitor response/possible low dose diuretic at dc Also educated patient on low salt diet at discharge -- he endorses eating lots of salty snacks/etc (BNP only 65, but can be elevated w/ diastolic HF w/ obesity) Low threshold for empiric abx w/ azithro/doxy --Patient req for pulm consult, placed -- defer to pulm in consult Titrate O2 as able 2step prior to dc Monitor labs on repeat (2) COPD (chronic obstructive pulmonary disease): Plan: Management as above DuoNebs, Albuterol, Solumedrol --> prednisone as above Continue Breo-Ellipta Pulm consulted (3) ADALID (obstructive sleep apnea): Plan: Chronic. Patient reports compliance with CPAP and nocturnal oxygen at home -Continue CPAP HS (not utilized last night) Supplemental O2 qHS (4) Controlled diabetes mellitus with neurologic complication, with long-term current use of insulin: Plan: Last [id number] on 04/11/23 -Lantus 10u BID -ISS -Goal blood sugar 110-140 BSG elevation, likely from 125mg IV steroids --> got BSG check after eaten this morning as [employer] not aware BSG check Additional 5u lantus w/ 10u this morning, additional per pharmacy as consulted for glycemic management Hopefully now that transitioning to prednisone BSGs will be much better -- MONITOR (5) Hypertension: Plan: Blood pressure elevated 174/99 on admission Continues on losartan/HCTZ Lasix 20mg IV x 1 on admission, additional 20mg IV for today LOW SALT DIET DISCUSSED/encouraged as above, better BP control w/ hx diastolic HF Consideration for increasing home HCTZ vs low dose lasix at d/c BP presently 162/71 Plan continued inpatient stay, transitioned to prednisone, additional lasix, pulm consulted BP control PT eval to be obtained Patient is hopeful for discharge tomorrow Admission and Anticipated Discharge Date Admission Date: April 13, 2023 Subjective eval this morning, reported doing better. +cough but not productive. down to 2L NC discussed additional dose of lasix w/ steroids/transition to prednisone as well, possible 2 step he was hopeful for dc but discussed if remaining on O2/need to stay overnight and will hope to dc tomorrow. (He is hopeful to watch [employer] game tomorrow at home). No fever/chills. Questions/concerns addressed at this time. Physical Exam Physical Exam: General: WD/WN male sitting up in bed, NAD HEENT: head atraumatic, normocephalic, mmm, trachea midline Resp: diminished in the bases, end expiratory wheezing posteriorly (R>L soctt), no rales, on 2L NC CV: RRR< no significant m/r/g, trace pedal edema, no calf tenderness GI: +BS, soft/NT ; no trivedi MSK/Neuro: no focal deficit, no slurred speech Psych: AOx3, cooperative with exam Results & Data Results & Data Vital Signs (Past 12 Hours) Vital Signs Temp Pulse Pulse Pulse Resp BP BP 04/14/23 07:22 76 20 04/14/23 04:00 04/14/23 03:46 36.9 C 73 18 165/76 H 04/14/23 04:17 76 18 04/14/23 02:47 04/14/23 02:00 72 22 175/87 H 04/14/23 01:30 72 24 176/92 H 04/13/23 23:30 73 20 150/109 H 04/13/23 23:07 187/93 H 04/13/23 22:13 179/90 H 04/14/23 00:48 72 04/13/23 23:15 74 20 187/93 H 04/13/23 22:30 75 22 179/90 H 04/13/23 20:28 78 22 170/89 H 04/13/23 21:28 76 22 04/13/23 20:46 85 04/13/23 20:46 04/13/23 20:46 37.1 C 91 H 24 170/89 H 04/13/23 20:46 Pulse Ox O2 Del Method O2 Flow Rate 04/14/23 07:22 94 Nasal Cannula 2 04/14/23 04:00 Nasal Cannula 2 04/14/23 03:46 93 Nasal Cannula 2 04/14/23 04:17 94 Nasal Cannula 2 04/14/23 02:47 Nasal Cannula 2 04/14/23 02:00 91 04/14/23 01:30 93 Room Air 04/13/23 23:30 96 04/13/23 23:07 04/13/23 22:13 04/14/23 00:48 04/13/23 23:15 100 Room Air 04/13/23 22:30 94 Nasal Cannula 2 04/13/23 20:28 94 Nasal Cannula 2 04/13/23 21:28 94 Nasal Cannula 2 04/13/23 20:46 04/13/23 20:46 94 Nasal Cannula 3 04/13/23 20:46 94 Nasal Cannula 3 04/13/23 20:46 Nasal Cannula 3 Laboratory Results 04/14/23 04/14/23 04/14/23 Range/Units 11:58 11:57 11:56 WBC (4.8-10.8) K/ul RBC (4.70-6.10) M/uL Hgb (14.0-18.0) g/dl Hct (42.0-52.0) % MCV (80.0-100.0) fL MCH (25.0-34.0) pg MCHC (32.0-36.0) g/dL RDW Std Deviation (36.4-46.3) fL RDW Coeff of Delgado (11.5-14.5) % Plt Count (130-400) K/uL MPV (9.4-12.4) fL Immature Gran % (Auto) % Neut % (Auto) % Lymph % (Auto) % [place] % (Auto) % Eos % (Auto) % Baso % (Auto) % Neut # (Auto) (1.40-6.50) K/uL Lymph # (Auto) (1.20-3.40) K/uL [place] # (Auto) (0.11-0.59) K/uL Eos # (Auto) (0.00-0.50) K/uL Baso # (Auto) (0.00-0.20) K/uL Immature Gran # (Auto) (0.01-0.20) K/uL PT (9.0-12.0) Seconds INR (0.9-1.1) Sodium (136-145) mmol/L Potassium (3.5-5.1) mmol/L Chloride (98-107) mmol/L Carbon Dioxide (21-32) mmol/L Anion Gap (3-11) BUN (6-23) mg/dl Creatinine (0.6-1.4) mg/dl Est Cr Clr Drug Dosing ml/min Est GFR ( Amer) ml/min Est GFR (Non-Af Amer) ml/min BUN/Creatinine Ratio (10-20) Glucose (70-99(Fasting)) mg/dl POC Glucose 318 H* 358 H* 344 H* (70-99) mg/dl Calcium (8.6-10.3) mg/dl Phosphorus (2.5-4.9) mg/dl Magnesium (1.7-2.4) mg/dl Total Bilirubin (0.2-1.0) mg/dl AST (13-39) U/L ALT (7-52) U/L Alkaline Phosphatase (34-104) U/L Troponin I High Sens (0-20) pg/ml B-Natriuretic Peptide (0-100) pg/ml Total Protein (6.0-8.3) gm/dl Albumin (3.4-5.0) gm/dl Globulin (2.5-4.0) gm/dl Albumin/Globulin Ratio (0.9-2) Lipase (11-82) U/L Procalcitonin (0-0.5) ng/ml SARS-CoV-2, RNA, NAAT (NEGATIVE) 10/20/23 10/20/23 10/20/23 Range/Units 08:49 06:56 06:56 WBC 8.79 (4.8-10.8) K/ul RBC 4.26 L (4.70-6.10) M/uL Hgb 13.8 L (14.0-18.0) g/dl Hct 38.9 L (42.0-52.0) % MCV 91.3 (80.0-100.0) fL MCH 32.4 (25.0-34.0) pg MCHC 35.5 (32.0-36.0) g/dL RDW Std Deviation 41.0 (36.4-46.3) fL RDW Coeff of Delgado 12.3 (11.5-14.5) % Plt Count 212 (130-400) K/uL MPV 10.0 (9.4-12.4) fL Immature Gran % (Auto) % Neut % (Auto) % Lymph % (Auto) % [place] % (Auto) % Eos % (Auto) % Baso % (Auto) % Neut # (Auto) (1.40-6.50) K/uL Lymph # (Auto) (1.20-3.40) K/uL [place] # (Auto) (0.11-0.59) K/uL Eos # (Auto) (0.00-0.50) K/uL Baso # (Auto) (0.00-0.20) K/uL Immature Gran # (Auto) (0.01-0.20) K/uL PT (9.0-12.0) Seconds INR (0.9-1.1) Sodium 136 (136-145) mmol/L Potassium 3.5 (3.5-5.1) mmol/L Chloride 97 L (98-107) mmol/L Carbon Dioxide 30 (21-32) mmol/L Anion Gap 9 (3-11) BUN 19 (6-23) mg/dl Creatinine 1.03 (0.6-1.4) mg/dl Est Cr Clr Drug Dosing 59.0 ml/min Est GFR ( Amer) 79.1 ml/min Est GFR (Non-Af Amer) 68.3 ml/min BUN/Creatinine Ratio 18.4 (10-20) Glucose 316 H* (70-99(Fasting)) mg/dl POC Glucose 341 H* (70-99) mg/dl Calcium 9.4 (8.6-10.3) mg/dl Phosphorus (2.5-4.9) mg/dl Magnesium 1.7 (1.7-2.4) mg/dl Total Bilirubin (0.2-1.0) mg/dl AST (13-39) U/L ALT (7-52) U/L Alkaline Phosphatase (34-104) U/L Troponin I High Sens (0-20) pg/ml B-Natriuretic Peptide (0-100) pg/ml Total Protein (6.0-8.3) gm/dl Albumin (3.4-5.0) gm/dl Globulin (2.5-4.0) gm/dl Albumin/Globulin Ratio (0.9-2) Lipase (11-82) U/L Procalcitonin (0-0.5) ng/ml SARS-CoV-2, RNA, NAAT (NEGATIVE) 04/14/23 04/13/23 04/13/23 Range/Units 01:25 22:58 20:57 WBC (4.8-10.8) K/ul RBC (4.70-6.10) M/uL Hgb (14.0-18.0) g/dl Hct (42.0-52.0) % MCV (80.0-100.0) fL MCH (25.0-34.0) pg MCHC (32.0-36.0) g/dL RDW Std Deviation (36.4-46.3) fL RDW Coeff of Delgado (11.5-14.5) % Plt Count (130-400) K/uL MPV (9.4-12.4) fL Immature Gran % (Auto) % Neut % (Auto) % Lymph % (Auto) % [place] % (Auto) % Eos % (Auto) % Baso % (Auto) % Neut # (Auto) (1.40-6.50) K/uL Lymph # (Auto) (1.20-3.40) K/uL [place] # (Auto) (0.11-0.59) K/uL Eos # (Auto) (0.00-0.50) K/uL Baso # (Auto) (0.00-0.20) K/uL Immature Gran # (Auto) (0.01-0.20) K/uL PT (9.0-12.0) Seconds INR (0.9-1.1) Sodium (136-145) mmol/L Potassium (3.5-5.1) mmol/L Chloride (98-107) mmol/L Carbon Dioxide (21-32) mmol/L Anion Gap (3-11) BUN (6-23) mg/dl Creatinine (0.6-1.4) mg/dl Est Cr Clr Drug Dosing ml/min Est GFR ( Amer) ml/min Est GFR (Non-Af Amer) ml/min BUN/Creatinine Ratio (10-20) Glucose (70-99(Fasting)) mg/dl POC Glucose (70-99) mg/dl Calcium (8.6-10.3) mg/dl Phosphorus (2.5-4.9) mg/dl Magnesium (1.7-2.4) mg/dl Total Bilirubin (0.2-1.0) mg/dl AST (13-39) U/L ALT (7-52) U/L Alkaline Phosphatase (34-104) U/L Troponin I High Sens (0-20) pg/ml B-Natriuretic Peptide 65 (0-100) pg/ml Total Protein (6.0-8.3) gm/dl Albumin (3.4-5.0) gm/dl Globulin (2.5-4.0) gm/dl Albumin/Globulin Ratio (0.9-2) Lipase (11-82) U/L Procalcitonin < 0.05 (0-0.5) ng/ml SARS-CoV-2, RNA, NAAT NEGATIVE (NEGATIVE) 04/13/23 04/13/23 04/13/23 Range/Units 20:57 20:57 20:57 WBC 12.63 H (4.8-10.8) K/ul RBC 4.49 L (4.70-6.10) M/uL Hgb 14.6 (14.0-18.0) g/dl Hct 41.1 L (42.0-52.0) % MCV 91.5 (80.0-100.0) fL MCH 32.5 (25.0-34.0) pg MCHC 35.5 (32.0-36.0) g/dL RDW Std Deviation 42.0 (36.4-46.3) fL RDW Coeff of Delgado 12.6 (11.5-14.5) % Plt Count 215 (130-400) K/uL MPV 10.2 (9.4-12.4) fL Immature Gran % (Auto) 0.4 % Neut % (Auto) 80.5 % Lymph % (Auto) 7.2 % [place] % (Auto) 8.6 % Eos % (Auto) 2.8 % Baso % (Auto) 0.5 % Neut # (Auto) 10.18 H (1.40-6.50) K/uL Lymph # (Auto) 0.91 L (1.20-3.40) K/uL [place] # (Auto) 1.08 H (0.11-0.59) K/uL Eos # (Auto) 0.35 (0.00-0.50) K/uL Baso # (Auto) 0.06 (0.00-0.20) K/uL Immature Gran # (Auto) 0.05 (0.01-0.20) K/uL PT 11.9 (9.0-12.0) Seconds INR 1.1 (0.9-1.1) Sodium 137 (136-145) mmol/L Potassium 3.9 (3.5-5.1) mmol/L Chloride 99 (98-107) mmol/L Carbon Dioxide 29 (21-32) mmol/L Anion Gap 9 (3-11) BUN 17 (6-23) mg/dl Creatinine 0.95 (0.6-1.4) mg/dl Est Cr Clr Drug Dosing 67.6 ml/min Est GFR ( Amer) 87.3 ml/min Est GFR (Non-Af Amer) 75.3 ml/min BUN/Creatinine Ratio 17.9 (10-20) Glucose 154 H (70-99(Fasting)) mg/dl POC Glucose (70-99) mg/dl Calcium 10.1 (8.6-10.3) mg/dl Phosphorus 2.8 (2.5-4.9) mg/dl Magnesium 1.3 L (1.7-2.4) mg/dl Total Bilirubin 1.2 H (0.2-1.0) mg/dl AST 23 (13-39) U/L ALT 20 (7-52) U/L Alkaline Phosphatase 52 (34-104) U/L Troponin I High Sens 15.1 (0-20) pg/ml B-Natriuretic Peptide (0-100) pg/ml Total Protein 7.3 (6.0-8.3) gm/dl Albumin 4.2 (3.4-5.0) gm/dl Globulin 3.1 (2.5-4.0) gm/dl Albumin/Globulin Ratio 1.4 (0.9-2) Lipase 15 (11-82) U/L Procalcitonin (0-0.5) ng/ml SARS-CoV-2, RNA, NAAT (NEGATIVE) Diagnostic Findings Chest X-Ray 04/13/23 20:41 XR chest 1V portable HISTORY: 78 years-old Male hypoxia after bronch acute hypoxia COMPARISON: Chest radiograph of same day at 1:30 PM, chest CT 04/07/2023 TECHNIQUE: AP view of the chest FINDINGS: Cardiac silhouette is enlarged. Stable linear consolidative perihilar opacities with interstitial coarsening. Pulmonary vascular congestion. No pneumothorax or large pleural effusion. Degenerative changes of the shoulders and spine. IMPRESSION: 1. Cardiomegaly with pulmonary vascular congestion. 2. Stable linear perihilar consolidation with mild reticular nodular opacities, better seen on the prior chest CT. ACT 112: Negative or not required by law. The above report was generated using voice recognition software. It may contain grammatical, syntax or spelling errors. Electronically signed by: Abelino Matthews M.D. 04/14/2023 7:32 AM Chest X-Ray 04/14/23 07:59 XR chest 1V portable HISTORY: 78 years-old Male f/u congestion acute cough with congestion COMPARISON: 04/13/2023, chest CT 04/07/2023. TECHNIQUE: AP view of the chest FINDINGS: Cardiac silhouette is enlarged. Pulmonary vascular congestion with progressed interstitial coarsening. No pneumothorax or large pleural effusion. Stable linear perihilar consolidation with mild reticulonodular opacities. IMPRESSION: 1. Cardiomegaly with pulmonary edema. 2. Stable linear perihilar consolidation with mild reticular nodular opacities, better seen on the prior chest CT. ACT 112: Negative or not required by law. The above report was generated using voice recognition software. It may contain grammatical, syntax or spelling errors. Electronically signed by: Abelino Matthews M.D. 04/14/2023 10:58 AM PG Care Time/CCT Total # of Minutes Spent Total Time Spent with Patient: Total time spent is greater than 50% in coordination of care (as documented) at patient's floor/unit and/or counseling patient: Coding Level of Care Code 14327 SUB INP/OBS CARE 3/50MIN Diagnoses Hypoxia R09.02 COPD (chronic obstructive pulmonary disease) J44.9 COPD type: unspecified COPD ADALID (obstructive sleep apnea) G47.33 Controlled diabetes mellitus with neurologic complication, with long-term current use of insulin E11.49; Z79.4 Hypertension I10 (2) COPD (chronic obstructive pulmonary disease) COPD type: unspecified COPD Qualified Code(s): J44.9 - Chronic obstructive pulmonary disease, unspecified
[2023-04-14 08:02] LABS: BUN Creatinine Ratio 18.4 (10-20); Calcium 9.4 mg/dl (8.6-10.3); Est GFR (African American) 79.1 ml/min; Est GFR (Non-African American) 68.3 ml/min; Magnesium 1.7 mg/dl (1.7-2.4); Potassium 3.5 mmol/L (3.5-5.1)
[2023-04-14] MEDS: LOSARTAN/HCTZ 50/12.5MG TAB PO SCH (08:44)
[2023-04-14] MEDS: TERAZOSIN HCL 5 MG CAP PO SCH (08:45)
[2023-04-14] MEDS: PANTOprazole 40 MG TAB PO SCH (08:45)
[2023-04-14] MEDS: INSULIN ASPART PER UNIT CHARGE SC SCH ×4 (08:45→20:49)
[2023-04-14] MEDS ORDERED: PHARMACY GLYCEMIC MGMT CONSULT PRN (08:57)
[2023-04-14] MEDS ORDERED: LANTUS PER UNIT CHARGE SQ SCH ×2 (09:00→21:00)
[2023-04-14] MEDS ORDERED: LANTUS PER UNIT CHARGE SQ STA (09:07)
--- NOTE | 2023-04-14 09:46 | Pharmacy Report ---
Pharmacy Glycemic Short Note 2 - Date of Service April 14, 2023 - Glycemic Short BSG Results (Last 24 hours): 04/13/23 04/14/23 04/14/23 20:57 06:56 08:49 Glucose 154 H 316 H* POC Glucose 341 H* OUTPATIENT ANTIDIABETIC REGIMEN: * Lantus 26 units SC HS * Novolog 14 units SC TIDM HbA1c: 7% (04/11/23) ASSESSMENT: * FAY is an 78 year old male w/ history of COPD/restrictive lung disease who presented to ED w/ hypoxia (home pulse ox showed oxygen saturation of 79%) * IV steroids initiated in ED and continued on admission * Methylprednisolone 125 mg IV x 1, 40 mg IV q8h ongoing * Pharmacy consulted for glycemic management due to BSG of 341 mg/dL this morning (likely related to IV steroids) * Patient with reasonably well-controlled T2DM as an outpatient on SC basal/bolus regimen * Will give ~0.4 unit/kg basal this AM to help cover steroids and tighten Novolog * Will tighten Novolog further at dinner if BSG does not trend below 250 mg/dL PLAN FOR INPATIENT GLYCEMIC CONTROL: * Basal insulin * Lantus 35 units SQ this AM * Lantus 0-20 units SC HS (see EHR for details) * Bolus insulin * NovoLog per scale ACHS or Q6hrs while NPO * Goal Range: Low 110 mg/dL - High 140 mg/dL * Correction Factor: 20 mg/dL/unit * Nutritional / Prandial insulin per carb ratio of 1 unit per 7 grams CHO consumed
[2023-04-14] MEDS: POLYETHYLENE (MIRALAX) 17 GM PACK PO SCH (09:52)
[2023-04-14] MEDS ORDERED: FUROSEMIDE INJ 20 MG/2 ML VIAL IV ONE (10:05)
[2023-04-14] MEDS ORDERED: POTASSIUM CHLORIDE CRTAB 20 MEQ TABCR PO STA (10:05)
--- NOTE | 2023-04-14 10:09 | Discharge Summary ---
Date of Service April 14, 2023 Admission HPI Per Admitting Provider Sunil Cruz is a pleasant 78yo male with history of COPD and restrictive lung disease on nocturnal O2, ADALID on CPAP, HTN, HLP and DM presenting from home with hypoxia. Patient had an EBUS with biopsy performed by Dr. Moncada today. The procedure was uncomplicated and well tolerated. When he returned home he decided to check his pulse oxygen level. He was found to be 79% on room air at rest. He denies chest pain, cough, SOB. No dizziness. He called EMS and was confirmed to be hypoxic at 79%. He was placed on 2L NC which improved saturation to 89%. They increased supplemental O2 to 4L with improvement to 94%. Patient does report some wheezing now as well as dry cough and a mild elevated temperature since the bronchoscopy. In the ER he is afebrile, HD stable. Adequate oxygenation on 2L NC. ER Course: Lasix 20mg IV NSS x 500mL Albuterol 3mL neb Solumedrol 125mg IV Magnesium x 1gm Admission Exam Per Admitting Provider General: patient resting comfortably, NAD, non-toxic in appearance, AA&O x 4 Skin: warm, dry, intact, no rashes or lesions HEENT: NC/AT, PERRL, EOMI, anicteric sclera, conjunctiva without injection, external ear normal to inspection and nontender, nares patent, moist mucus membranes, dentition intact, no oropharyngeal lesions, neck supple, trachea midline, no LAD, no thyromegaly, no JVD Heart: +S1/S2, regular, no m/r/g Lungs: equal air entry bilaterally,no rales/rhonchi, diffuse end-expiratory wheezing Abd: +BS, soft, NT/ND, no masses/organomegaly/ascites Ext: warm, 2+ pulses in UE/LE bilaterally, no clubbing/cyanosis or edema Neuro: nonfocal, patient AA&O x 4, speech intact, no facial droop, moving all extremities on command with equal strength 5/5 Principal Diagnosis Hypoxia, Pneumonitis Discharge Exam General: WD/WN male sitting up in bed, NAD HEENT: head atraumatic, normocephalic, mmm, trachea midline Resp: diminished in the bases, end expiratory wheezing posteriorly (R>L scott), no rales, on 2L NC CV: RRR< no significant m/r/g, trace pedal edema, no calf tenderness GI: +BS, soft/NT ; no trivedi MSK/Neuro: no focal deficit, no slurred speech Psych: AOx3, cooperative with exam Discharge Data Allergies Allergy/AdvReac Type Severity Reaction Status Date / Time sulfamethoxazole [Bactrim] Allergy Unknown hives Verified 04/13/23 10:14 trimethoprim [Bactrim] Allergy Unknown hives Verified 04/13/23 10:14 ezetimibe AdvReac Intermediate muscle Verified 04/14/23 03:50 aches finasteride AdvReac Intermediate difficulty Verified 04/14/23 03:50 urinating, burning sensation gemfibrozil AdvReac Intermediate muscle Verified 04/14/23 03:50 aches lovastatin AdvReac Intermediate muscle Verified 04/14/23 03:50 aches simvastatin AdvReac Intermediate leg Verified 04/14/23 03:50 crampimg and muscle aches tamsulosin AdvReac Intermediate difficulty Verified 04/14/23 03:50 urinating, burning sensation Consultations 04/13/23 22:46 ED Decision to Admit Stat Ordered Studies Chest X-Ray 04/13/23 20:41 XR chest 1V portable HISTORY: 78 years-old Male hypoxia after bronch acute hypoxia COMPARISON: Chest radiograph of same day at 1:30 PM, chest CT 04/07/2023 TECHNIQUE: AP view of the chest FINDINGS: Cardiac silhouette is enlarged. Stable linear consolidative perihilar opacities with interstitial coarsening. Pulmonary vascular congestion. No pneumothorax or large pleural effusion. Degenerative changes of the shoulders and spine. IMPRESSION: 1. Cardiomegaly with pulmonary vascular congestion. 2. Stable linear perihilar consolidation with mild reticular nodular opacities, better seen on the prior chest CT. ACT 112: Negative or not required by law. The above report was generated using voice recognition software. It may contain grammatical, syntax or spelling errors. Electronically signed by: Abelino Matthews M.D. 04/14/2023 7:32 AM Hospital Course (1) Hypoxia: 78yo male with COPD, restrictive lung disease s/p EBUS with transbronchial needle aspiration of mediastinal hilar lymph node and BAL of the JESUS performed in Pulmonary Clinic 04/[address] Vilensky. The procedure was well tolerated. Pathology specimens pending. Patient reports some elevation of body temperature currently. Diffuse wheezing end-expiratory. Hypoxic on arrival now improved on 2L NC. Ddx to include bronchospasm/COPD, less likely PNA, possible aspiration event during procedure? Patient does not appear to be grossly volume overloaded - he is being given Lasix 20mg IV now. No distress. No pneumothorax. -Admit to medical -Maintain supplemental O2 -Treatment for presumed COPD with DuoNebs q 4 hours, Albuterol nebs q 2 hours PRN, Solumedrol 40mg IV TID -Low threshold to start antibiotics - will hold for now given normal Procalcitonin -Check SARS-CoV-2 Mag 1.3 --> 2gm IV replacement ordered, repeat 04/14 --> Patient would like to go home O2 down from 4L --> 2L, decreased wheezing but still w/ end expiratory wheezing worse R posterior lung scott Additional 20mg IV lasix x1 prior to dc, plan for prednisone 40mg x 5 day course w/ low dose diuretic 2step prior to dc planned prior to dc, rx to CM if o2 requirement (2) COPD (chronic obstructive pulmonary disease): Management as above -DuoNebs, Albuterol, Solumedrol -Continue Breo-Ellipta (3) ADALID (obstructive sleep apnea): Chronic. Patient reports compliance with CPAP and nocturnal oxygen at home -Continue CPAP -Supplemental O2 qHS (4) Controlled diabetes mellitus with neurologic complication, with long-term current use of insulin: Last [id number]=3 on 04/11/23 -Lantus 10u BID -ISS -Goal blood sugar 110-140 BSG elevation, likely from 125mg IV steroids, continued IV steroids Additional 5u lantus w/ AM 10u ordered, pharmacy consulted for hyperglycemia, appreciate assistance (5) Hypertension: Blood pressure elevated -Continue Losartan/HCTZ Discharge Plan Discharge Items Reason For Visit: HYPOXIA Follow-up/Referrals: Manan Holt MD [Primary Care Provider] - Medications and DC Order Prescriptions: No Action (DME) OneTouch Ultra Blue Test Strip Strip See Rx Instructions .ROUTE .MEDSUPPLY Qty: 300 3RF Rx Instructions: test blood sugar 3 x daily potassium chloride 20 mEq tablet extended release 10 meq PO QAM Qty: 90 3RF (DME) pen needle, diabetic [BD Laurita 2nd Gen Pen Needle] 32 gauge x 5/32" needle See Rx Instructions miscellaneous .MEDSUPPLY Qty: 400 3RF Rx Instructions: Change new pen needle 4x a day terazosin 5 mg capsule 5 mg PO DAILY Qty: 90 3RF omeprazole 40 mg capsule,delayed release(DR/EC) 40 mg PO HS Qty: 90 3RF (DME) CPAP Machine Misc See Rx Instructions .MEDSUPPLY Qty: 1 0RF Rx Instructions: CPAP 10 cm of water with a C-Flex of 1 and oxygen 1 L/min bled into it, ResMed AirFit F20 medium full mask. G47.33 (DME) CPAP Supplies Misc See Rx Instructions .MEDSUPPLY Qty: 1 0RF Rx Instructions: CPAP supplies, mask, headgear, filters, tubing, water chamber. G47.33 (DME) Oxygen Home Liters Per Minute See Rx Instructions .MEDSUPPLY Qty: 1 0RF Rx Instructions: 1 L oxygen bled into the CPAP albuterol sulfate 90 mcg/actuation HFA aerosol inhaler 2 puff inhalation Q6H PRN (Reason: Shortness Of Breath Or Wheezing) Qty: 18 3RF cholecalciferol (vitamin D3) 25 mcg (1,000 unit) tablet 4,000 unit PO QAM melatonin 10 mg tablet 5 mg PO HS PRN (Reason: Insomnia) rosuvastatin 5 mg tablet 5 mg PO Q2D 90 Days Qty: 45 2RF cyanocobalamin (vitamin B-12) 1,000 mcg Tablet 1,000 mcg PO QAM aspirin [Ninoska Low Dose Aspirin] 81 mg Tablet,Delayed Release (Dr/Ec) 81 mg PO HS ascorbic acid (vitamin C) [Vitamin C] 500 mg Tablet 500 mg PO QAM omega 2-uux-tgf-fish oil [Fish Oil] 1,000 mg (120 mg-180 mg) capsule 3 cap PO DAILY Rx Instructions: 2 tabs am, 1 tab pm losartan-hydrochlorothiazide 100-25 mg tablet 1 tab PO QAM Rx Instructions: Take 1 tablet by mouth once daily nystatin 100,000 unit/gram cream 1 applic topical BID PRN (Reason: DIRECTED) insulin aspart U-100 [Novolog FlexPen U-100 Insulin] 100 unit/mL (3 mL) insulin pen 14 unit subcut TID MDD 45 unit fluticasone furoate-vilanterol [Breo Ellipta] 100-25 mcg/dose blister with device 1 inh inhalation QPM Daily Fiber (psyllium-sucrose) 3 gram/7 gram Powder 1 tsp PO QAM milk thistle 140 mg Capsule 140 mg PO QAM Beet Root 1 tab PO DAILY timolol maleate 0.5 % drops 1 drp OPB QAM coenzyme Q10 [CoQ-10] 100 mg capsule 200 mg PO QAM insulin glargine [Lantus U-100 Insulin] 100 unit/mL solution 26 unit subcut .9:00PM Rx Instructions: Inject Lantus 1x a day 26 units. (This replaces your NPH or cloudy insulin) Admission Data Admit Date/Time: 04/13/23 23:05 Attending Provider: Randy Mix Admit Provider: Crys Armendariz Primary Care Provider: Manan Holt Other Providers: Crys Armendariz Coding Diagnoses Hypoxia R09.02 COPD (chronic obstructive pulmonary disease) J44.9 COPD type: unspecified COPD ADALID (obstructive sleep apnea) G47.33 Controlled diabetes mellitus with neurologic complication, with long-term current use of insulin E11.49; Z79.4 Hypertension I10
--- NOTE | 2023-04-14 11:00 | XRay Report ---
XR chest 1V portable HISTORY: 78 years-old Male f/u congestion acute cough with congestion COMPARISON: 04/13/2023, chest CT 04/07/2023. TECHNIQUE: AP view of the chest FINDINGS: Cardiac silhouette is enlarged. Pulmonary vascular congestion with progressed interstitial coarsening . No pneumothorax or large pleural effusion. Stable linear perihilar consolidation with mild reticulo nodular opacities. IMPRESSION: 1. Cardiomegaly with pulmonary edema. 2. Stable linear perihilar consolidation with mild reticular nodular opacities, better seen on the pr ior chest CT. ACT 112: Negative or not required by law. The above report was generated using voice recognition software. It may contain grammatical, syntax o r spelling errors. Electronically signed by: Abelino Matthews M.D. 04/14/2023 10:58 AM
[2023-04-14] MEDS ORDERED: INSULIN HUMAN REGULAR PER UNIT 8 UNITS in SYRINGE 7.92 ML IV ONE (12:30)
[2023-04-14] MEDS: predniSONE 20 MG TAB PO SCH (13:35)
--- NOTE | 2023-04-14 15:25 | Pulmonary Consultation ---
Date of Consultation April 14, 2023 Assessment & Plan (1) Hypoxia: (2) COPD (chronic obstructive pulmonary disease): COPD type: unspecified COPD Qualified Code(s): J44.9 - Chronic obstructive pulmonary disease, unspecified (3) LAD (lymphadenopathy), mediastinal: (4) Abnormal PFTs (pulmonary function tests): (5) Lytic lesion of bone on x-ray: Plan 78-year-old male with a history of COPD possibly from occupational exposure presenting to the hospital after undergoing bronchoscopy 04/13/2023 due to hypoxemia. Chest x-ray revealed signs consistent with mild pneumonitis versus pulmonary e kirstin. Patient has been receiving diuresis and prednisone therapy during this hospital stay. Agree with diuretic therapy and a course of prednisone for 5 days. Biopsy results from the mediastinal region on EBUS negative for malignancy. There was evidence of one granuloma which may indicate the possibility of sarcoidosis given the radiographic picture. Malignancy still remains in the differential and at this time I would recommend a bone biopsy of one of these hypointense lytic skeletal lesions to evaluate for metastatic disease versus hematological malignancy such as myeloma. Patient scheduled to meet with medical oncology in April to discuss options. History of Present Illness Reason for Consultation: Post bronchoscopy hypoxia Attending Physician: Randy Mix History of Present Illness 78-year-old male with a history of COPD and mediastinal lymphadenopathy who presented to the ER yesterday after undergoing a bronchoscopy. His checks his oxygen saturations at home which were around 79%. She told him to put his CPAP on with 1 L of oxygen bled in. His oxygen saturations improved to 90% at home. Throughout this time he denied any shortness of breath or significant cough. He denies any chest pain, fevers, chills or night sweats. He did feel quite cold after his procedure yesterday and had to wear gloves at home. Today he is requiring 2 L of oxygen to maintain saturations in the 90s. His labs have been generally unremarkable without any significant leukocytosis. Pro-Cl and BNP were unremarkable. He was started on prednisone by the primary team for possible pneumonitis. Mediastinal and hilar biopsies were nondiagnostic. There was one granulomas seen on the paratracheal lymph node possibly suggestive of sarcoidosis. Patient also has lytic lesions noted on MRI of the spine which were FDG avid on PET scan. The concern is that there is a potential malignancy of unknown primary. Chest x-ray today demonstrates bilateral fluffy infiltrates consistent with likely pulmonary edema and platelike atelectasis noted in the left upper lobe. PFTs 08/22/2022 revealed a moderate airflow obstruction with an FEV1 of 66%. TLC was reduced to 77%. DLCO 87%. Findings consistent with mixed restrictive and obstructive lung disease. Patient is a lifelong non-smoker. 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 Allergies Allergy/AdvReac Type Severity Reaction Status Date / Time sulfamethoxazole [Bactrim] Allergy Unknown hives Verified 04/13/23 10:14 trimethoprim [Bactrim] Allergy Unknown hives Verified 04/13/23 10:14 ezetimibe AdvReac Intermediate muscle Verified 04/14/23 03:50 aches finasteride AdvReac Intermediate difficulty Verified 04/14/23 03:50 urinating, burning sensation gemfibrozil AdvReac Intermediate muscle Verified 04/14/23 03:50 aches lovastatin AdvReac Intermediate muscle Verified 04/14/23 03:50 aches simvastatin AdvReac Intermediate leg Verified 04/14/23 03:50 crampimg and muscle aches tamsulosin AdvReac Intermediate difficulty Verified 04/14/23 03:50 urinating, burning sensation Home Medications Medication Instructions Recorded Confirmed Type ascorbic acid (vitamin C) 500 mg 500 mg PO QAM 04/19/18 04/13/23 History tablet (Vitamin C) aspirin 81 mg tablet,delayed 81 mg PO HS 04/19/18 04/13/23 History release (Ninoska Low Dose Aspirin) cyanocobalamin (vitamin B-12) 1,000 mcg PO QAM 04/19/18 04/13/23 History 1,000 mcg tablet OneTouch Ultra Blue Test Strip #300 ea 12/30/20 04/13/23 Rx (blood sugar diagnostic) cholecalciferol (vitamin D3) 25 4,000 unit PO QAM 02/04/21 04/13/23 History mcg (1,000 unit) tablet melatonin 10 mg tablet 5 mg PO HS PRN Insomnia 02/04/21 04/13/23 History psyllium husk (with sugar) 3 1 tsp PO QAM 02/25/21 04/13/23 History gram/7 gram oral powder (Daily Fiber (psyllium-sucrose)) Beet Root 1 tab PO DAILY 07/18/21 04/13/23 History milk thistle 140 mg capsule 140 mg PO QAM 07/18/21 04/13/23 History timolol maleate 0.5 % eye drops 1 drp OPB QAM 07/18/21 04/13/23 History coenzyme Q10 100 mg capsule 200 mg PO QAM 08/01/22 04/13/23 History (CoQ-10) CPAP Machine #1 ea 08/05/22 04/13/23 Rx CPAP Supplies #1 ea 08/05/22 04/13/23 Rx Oxygen Home #1 ea 08/22/22 04/13/23 Rx potassium chloride 20 mEq 10 meq PO QAM #90 tabs 08/29/22 04/13/23 Rx tablet,extended release pen needle, diabetic 32 gauge x #400 ea 11/11/22 04/13/23 Rx 5/32" (BD Laurita 2nd Gen Pen Needle) rosuvastatin 5 mg tablet 5 mg PO Q2D 90 days #45 tabs 11/16/22 04/13/23 Rx omega 2-dbx-wbc-fish oil 1,000 mg 3 cap PO DAILY 11/29/22 04/13/23 History (120 mg-180 mg) capsule (Fish Oil) terazosin 5 mg capsule 5 mg PO DAILY #90 caps 11/29/22 04/13/23 Rx omeprazole 40 mg capsule,delayed 40 mg PO HS #90 caps 01/02/23 04/13/23 Rx release insulin glargine 100 unit/mL 26 unit subcut .9:00PM 01/05/23 04/13/23 History subcutaneous solution (Lantus U-100 Insulin) albuterol sulfate 90 mcg/actuation 2 puff inhalation Q6H PRN 01/27/23 04/13/23 Rx aerosol inhaler Shortness Of Breath Or Wheezing #18 grams fluticasone furoate 100 1 inh inhalation QPM 04/13/23 04/13/23 History mcg-vilanterol 25 mcg/dose inhalation powder (Breo Ellipta) insulin aspart U-100 100 unit/mL 14 unit subcut TID 04/13/23 04/13/23 History (3 mL) subcutaneous pen (Novolog FlexPen U-100 Insulin aspart) losartan 100 1 tab PO QAM 04/13/23 04/13/23 History mg-hydrochlorothiazide 25 mg tablet nystatin 100,000 unit/gram topical 1 applic topical BID PRN 04/13/23 04/13/23 History cream DIRECTED Patient History Medical History (Updated 04/14/23 @ 15:22 by Wil Moncada MD) Celestin's esophagus BPH (benign prostatic hyperplasia) COPD (chronic obstructive pulmonary disease) Degenerative cervical spinal stenosis Diabetic peripheral neuropathy Dyslipidemia Fatty liver disease, nonalcoholic GERD (gastroesophageal reflux disease) History of COVID-2021- resolved Hyperlipidemia Hypertension Insomnia Kidney stone Hx Lumbar degenerative disc disease Lytic lesion of bone on x-ray Mixed restrictive and obstructive lung disease Multiple pulmonary nodules ADALID (obstructive sleep apnea) CPAP Overweight (BMI 25.0-29.9) Polyneuropathy Skin cancer Hx basal cell Type 2 diabetes mellitus with neurologic complication, with long-term current use of insulin Surgical History History of appendectomy History of cataract surgery History of colonoscopy History of esophagogastroduodenoscopy (EGD) History of prostate surgery green light vaporization with cystoscopy and laser lithotripsy History of tonsillectomy Family History Mother Family history of diabetes mellitus Father Family history of diabetes mellitus Brother Family history of diabetes mellitus 2 Other No family history of adverse response to anesthesia Denies family history of Ovarian cancer Prostate cancer Coronary heart disease Breast cancer Colorectal cancer Social History Smoking Status: Former smoker Second Hand Exposure: No; Do You Dip or Chew Tobacco: No; Hx Alcohol Use: Yes Alcohol type: wine Alcohol Intake Frequency: Monthly or Less Hx Substance Use: No Preferred Language: Kiswahili Communication Ability: Effective Hearing Ability: Normal Presiding Judge Required: No Beliefs That Will Affect Care: None marital status: Current Living Situation: Spouse current occupational status: retired Feels Safe at Home: Yes Childhood Exposure to Second-Hand Smoke: Yes Diet: regular caffeine: Yes Dental Care, Regularly: Yes Physical Activity Frequency: 5-6 Times per Week Physical Activity Frequency Comment: walk Seatbelt Use: always Sunscreen Use: No Do you think of yourself as: straight/heterosexual Gender Identity: Male Assistive Devices: Cane and CPAP Review of Systems Review of Systems: All systems reviewed & are unremarkable except as noted in HPI & below Physical Exam Physical Exam: Constitutional: Patient appears to be of their stated age. Patient is in no apparent distress. Patient is well-developed. Eyes: Pupils are equal round and reactive to light. Conjunctivae are normal. Anicteric sclera. Ears nose, mouth and throat: Mallampati class 2. Normal posterior oropharynx. Uvula is midline. Neck: Trachea is midline. Visual inspection is normal. Respiratory: Mild crackles noted bilaterally. No use of accessory muscles. No significant clubbing noted. Cardiovascular: Regular rate and rhythm. No murmurs. No edema. Gastrointestinal: Normal bowel sounds, soft, nontender and nondistended. No hepatosplenomegaly noted. Musculoskeletal: No cyanosis. Patient is able to move all extremities. Strength is 5 out of 5 in the upper and lower extremities. Skin: No rashes, warm dry and intact. Neurologic: No obvious focal neurological deficits seen. Psychiatric: Alert and oriented x3 with a euthymic affect. Results & Data Results & Data Vital Signs (Past 12 Hours) Vital Signs Temp Pulse Pulse Pulse Pulse Pulse Resp 04/14/23 14:03 123 H 96 H 112 H 04/14/23 10:37 78 16 04/14/23 09:22 04/14/23 08:38 36.6 C 98 H 16 04/14/23 07:22 76 20 04/14/23 04:00 04/14/23 03:46 36.9 C 73 18 04/14/23 04:17 76 18 Resp Resp Resp BP Pulse Ox Pulse Ox Pulse Ox 04/14/23 14:03 20 18 16 92 93 04/14/23 10:37 95 04/14/23 09:22 04/14/23 08:38 162/71 H 95 04/14/23 07:22 94 04/14/23 04:00 04/14/23 03:46 165/76 H 93 04/14/23 04:17 94 Pulse Ox O2 Del Method O2 Flow Rate 04/14/23 14:03 92 04/14/23 10:37 Nasal Cannula 2 04/14/23 09:22 Nasal Cannula 2 04/14/23 08:38 Nasal Cannula 2 04/14/23 07:22 Nasal Cannula 2 04/14/23 04:00 Nasal Cannula 2 04/14/23 03:46 Nasal Cannula 2 04/14/23 04:17 Nasal Cannula 2 PG Care Time/CCT Total # of Minutes Spent Total Time Spent with Patient: Total time spent is greater than 50% in coordination of care (as documented) at patient's floor/unit and/or counseling patient: Coding Level of Care Code 74720 INT INP/OBS CARE 3/75MIN Diagnoses Hypoxia R09.02 COPD (chronic obstructive pulmonary disease) J44.9 COPD type: unspecified COPD LAD (lymphadenopathy), mediastinal R59.0 Abnormal PFTs (pulmonary function tests) R94.2 Lytic lesion of bone on x-ray M89.9
--- NOTE | 2023-04-14 17:16 | Communication Note ---
Date of Service: April 14, 2023 CDS Query COPD with acute exacerbation with possible aspiration pneumonitis Improving Tx as outlined in A/P, steroids/diuretics, pulmonary toilet, supplemental o2 to maintain sats -- currently to room air this evening
[2023-04-14] MEDS ORDERED: FLUTICASONE/VILANTEROL 100/25MCG 14 PUFFS/INHALER INH SCH (21:00)
[2023-04-14] MEDS ORDERED: ASPIRIN 81 MG ECTAB PO SCH (21:00)
--- NOTE | 2023-04-15 07:14 | Electrocardiogram Report ---
Test Reason : Blood Pressure : / mmHG Vent. Rate : 111 BPM Atrial Rate : 111 BPM P-R Int : 172 ms QRS Dur : 094 ms QT Int : 344 ms P-R-T Axes : 069 -37 061 degrees QTc Int : 467 ms Sinus tachycardia Left axis deviation Minimal voltage criteria for LVH, may be normal variant ( R in aVL ) Nonspecific ST abnormality Abnormal ECG When compared with ECG of 13-APR-2023 10:42, TX interval has decreased Vent. rate has increased BY 43 BPM Confirmed by Nando Snell ([id number]) on 04/15/2023 7:13:54 AM Referred By: REFERRED SELF Confirmed By:Nando Snell
--- NOTE | 2023-04-15 07:14 | Electrocardiogram Report ---
Test Reason : Blood Pressure : / mmHG Vent. Rate : 080 BPM Atrial Rate : 080 BPM P-R Int : 188 ms QRS Dur : 096 ms QT Int : 368 ms P-R-T Axes : 060 -32 050 degrees QTc Int : 424 ms Sinus rhythm with sinus arrhythmia with occasional Premature ventricular complexes Left axis deviation Abnormal ECG When compared with ECG of 13-APR-2023 21:17, (unconfirmed) Premature ventricular complexes are now Present Confirmed by Nando Snell ([id number]) on 04/15/2023 7:14:10 AM Referred By: REFERRED SELF Confirmed By:Nando Snell
[2023-04-15 07:15] LABS: Hematocrit (blood only) 35.1 % (42.0-52.0); Hemoglobin 12.5 g/dl (14.0-18.0); Mean Corpuscular Hemoglobin 32.6 pg (25.0-34.0); Mean Corpuscular Hgb Conc 35.6 g/dL (32.0-36.0); Mean Corpuscular Volume 91.6 fL (80.0-100.0); Platelet Count 205 K/uL (130-400); RDW Coefficient of Variation 12.4 % (11.5-14.5); RDW Standard Deviation 41.1 fL (36.4-46.3); Red Blood Count 3.83 M/uL (4.70-6.10); White Blood Count 16.59 K/ul (4.8-10.8)
[2023-04-15] MEDS: PANTOprazole 40 MG TAB PO SCH (08:25)
[2023-04-15] MEDS: LOSARTAN/HCTZ 50/12.5MG TAB PO SCH (08:25)
[2023-04-15] MEDS: predniSONE 20 MG TAB PO SCH (08:25)
[2023-04-15] MEDS: TERAZOSIN HCL 5 MG CAP PO SCH (08:25)
[2023-04-15 08:29] LABS: Calcium 9.6 mg/dl (8.6-10.3); Magnesium 1.7 mg/dl (1.7-2.4); Potassium 3.7 mmol/L (3.5-5.1)
[2023-04-15] MEDS: INSULIN ASPART PER UNIT CHARGE SC SCH (08:33)
[2023-04-15] MEDS: POLYETHYLENE (MIRALAX) 17 GM PACK PO SCH (08:34)
[2023-04-15 08:35] LABS: BUN Creatinine Ratio 31.1 (10-20); Creatinine Clr Calc Pharmacy 51.1 ml/min; Est GFR (African American) 66.5 ml/min; Est GFR (Non-African American) 57.3 ml/min
[2023-04-15] MEDS ORDERED: NovoLIN-N (NPH) PER UNIT CHARGE SQ SCH (09:00)
--- NOTE | 2023-04-15 09:19 | Discharge Summary ---
Date of Service April 15, 2023 Admission HPI Per Admitting Provider Chief Complaint: hypoxia Primary Care Provider: Manan Holt MD Sunil Cruz is a pleasant 78yo male with history of COPD and restrictive lung disease on nocturnal O2, ADALID on CPAP, HTN, HLP and DM presenting from home with hypoxia. Patient had an EBUS with biopsy performed by Dr. Moncada today. The procedure was uncomplicated and well tolerated. When he returned home he decided to check his pulse oxygen level. He was found to be 79% on room air at rest. He denies chest pain, cough, SOB. No dizziness. He called EMS and was confirmed to be hypoxic at 79%. He was placed on 2L NC which improved saturation to 89%. They increased supplemental O2 to 4L with improvement to 94%. Patient does report some wheezing now as well as dry cough and a mild elevated temperature since the bronchoscopy. In the ER he is afebrile, HD stable. Adequate oxygenation on 2L NC. ER Course: Lasix 20mg IV NSS x 500mL Albuterol 3mL neb Solumedrol 125mg IV Magnesium x 1gm Admission Exam Per Admitting Provider General: patient resting comfortably, NAD, non-toxic in appearance, AA&O x 4 Skin: warm, dry, intact, no rashes or lesions HEENT: NC/AT, PERRL, EOMI, anicteric sclera, conjunctiva without injection, external ear normal to inspection and nontender, nares patent, moist mucus membranes, dentition intact, no oropharyngeal lesions, neck supple, trachea midline, no LAD, no thyromegaly, no JVD Heart: +S1/S2, regular, no m/r/g Lungs: equal air entry bilaterally,no rales/rhonchi, diffuse end-expiratory wheezing Abd: +BS, soft, NT/ND, no masses/organomegaly/ascites Ext: warm, 2+ pulses in UE/LE bilaterally, no clubbing/cyanosis or edema Neuro: nonfocal, patient AA&O x 4, speech intact, no facial droop, moving all extremities on command with equal strength 5/5 Principal Diagnosis COPD, Pneumonitis, possible volume overload Discharge Exam General: WD/WN male sitting up in bed, NAD HEENT: head atraumatic, normocephalic, mmm, trachea midline Resp: diminished in the bases, significantly improved expiratory wheezing (almost completely resolved), on ROOM AIR CV: RRR< no significant m/r/g, trace pedal edema, no calf tenderness GI: +BS, soft/NT ; no trivedi MSK/Neuro: no focal deficit, no slurred speech Psych: AOx3, cooperative with exam Discharge Data Allergies Allergy/AdvReac Type Severity Reaction Status Date / Time sulfamethoxazole [Bactrim] Allergy Unknown hives Verified 04/13/23 10:14 trimethoprim [Bactrim] Allergy Unknown hives Verified 04/13/23 10:14 ezetimibe AdvReac Intermediate muscle Verified 04/14/23 03:50 aches finasteride AdvReac Intermediate difficulty Verified 04/14/23 03:50 urinating, burning sensation gemfibrozil AdvReac Intermediate muscle Verified 04/14/23 03:50 aches lovastatin AdvReac Intermediate muscle Verified 04/14/23 03:50 aches simvastatin AdvReac Intermediate leg Verified 04/14/23 03:50 crampimg and muscle aches tamsulosin AdvReac Intermediate difficulty Verified 04/14/23 03:50 urinating, burning sensation Consultations 04/13/23 22:46 ED Decision to Admit Stat 04/14/23 13:32 Consult Pulmonology Routine Ordered Studies Chest X-Ray 04/13/23 20:41 XR chest 1V portable HISTORY: 78 years-old Male hypoxia after bronch acute hypoxia COMPARISON: Chest radiograph of same day at 1:30 PM, chest CT 04/07/2023 TECHNIQUE: AP view of the chest FINDINGS: Cardiac silhouette is enlarged. Stable linear consolidative perihilar opacities with interstitial coarsening. Pulmonary vascular congestion. No pneumothorax or large pleural effusion. Degenerative changes of the shoulders and spine. IMPRESSION: 1. Cardiomegaly with pulmonary vascular congestion. 2. Stable linear perihilar consolidation with mild reticular nodular opacities, better seen on the prior chest CT. ACT 112: Negative or not required by law. The above report was generated using voice recognition software. It may contain grammatical, syntax or spelling errors. Electronically signed by: Abelino Matthews M.D. 04/14/2023 7:32 AM Chest X-Ray 04/14/23 07:59 XR chest 1V portable HISTORY: 78 years-old Male f/u congestion acute cough with congestion COMPARISON: 04/13/2023, chest CT 04/07/2023. TECHNIQUE: AP view of the chest FINDINGS: Cardiac silhouette is enlarged. Pulmonary vascular congestion with progressed interstitial coarsening. No pneumothorax or large pleural effusion. Stable linear perihilar consolidation with mild reticulonodular opacities. IMPRESSION: 1. Cardiomegaly with pulmonary edema. 2. Stable linear perihilar consolidation with mild reticular nodular opacities, better seen on the prior chest CT. ACT 112: Negative or not required by law. The above report was generated using voice recognition software. It may contain grammatical, syntax or spelling errors. Electronically signed by: Abelino Matthews M.D. 04/14/2023 10:58 AM Chest X-Ray 04/15/23 07:00 XR chest 2V PA/lateral CLINICAL HISTORY: f/u pulmonary edema COMPARISON STUDY: Chest CT April 07, 2023. Chest radiograph April 14, 2023. FINDINGS: Mild cardiomegaly is again noted. There is no pneumothorax or pleural effusion. Additional thickening has decreased. Underlying suspected granulomatous disease is again noted, as shown on prior CTs. IMPRESSION: 1. Resolution of pulmonary edema. 2. Underlying pulmonary nodules and mild mediastinal and bilateral hilar lymphadenopathy, better depicted on prior chest CT. This favors a granulomatous process. Although less likely, a neoplastic process cannot be excluded and continued imaging follow-up is recommended. ACT 112: Negative or not required by law. Electronically signed by: Thiago Villafuerte M.D. 04/15/2023 9:37 AM Hospital Course (1) Hypoxia: Hypoxia: 78yo male with COPD, restrictive lung disease s/p EBUS with transbronchial needle aspiration of mediastinal hilar lymph node and BAL of the JESUS performed in [facility] 04/[address] Moncada. The procedure was well tolerated. Pathology specimens pending (still pending at [facility]) but had SpO2 reported in 70s at home with reported some slight elevation in body temp/wheezing and was hypoxic on arrival Imaging w/o pneumonia/consolidation, did note pumonary edema Improvement w/ supplemental O2, COVID testing negative. Procal negative. ?COPD with acute exacerbation with possible aspiration pneumonitis vs pneumonitis from bronchoscopy IV solu-medrol on admission, transitioned to PO prednisone and continued course at discharge Pulmonary toilet with nebs/incentive spirometer/pulmonary toilet Patient was given 20mg IV Lasix in ER, repeated on 04/14 w/ improvement in breathing as well as wheezing. Suspect patient w/ degree of underlying diastolic HF and suspect increased salt in diet at home (hot dogs/soups-- provided info on low salt diet) Pulmonary was consulted during inpatient stay -- agreed w/ steroids/diuretics. Outpt f/u for biopsy of lytic lesion to be discussed w/ medical oncology as already arranged for upcoming April. ?underlying sarcoid vs other. Of note, did have OSMIN level drawn in past which was not elevated Titrated to room air, almost resolution in wheezing on examination. 2 step prior to dc without needs for supplemental O2 w/ ambulation --> discussed continuing Lasix 20mg PO at discharge while on the prednisone but to also monitor his weights and take additional prn Lasix for weight gain >3lb in 24hr or 5lb in a week. Discussed with patient about discussing with his PCP about either increasing his HCTZ vs daily low dose diuretic. Did not want to overdiuresis at decision to use 20mg PO dosing. Suspect if limiting salt in diet/better BP control will also help w/ diastolic heart failure symptoms. Encouraged compliance w/ CPAP at night as well. Repeat labs for Monday to ensure stable renal function as well as WBC recheck (elevated but suspected from steroids. has been afebrile). (2) COPD (chronic obstructive pulmonary disease): COPD (chronic obstructive pulmonary disease): Management as above DuoNebs, Albuterol, Solumedrol --> prednisone as above Continued Breo-Ellipta/home medications Titrated and stable on room air, 2step as above without needs ADALID (obstructive sleep apnea): Chronic. Patient reports compliance with CPAP and nocturnal oxygen at home -- continued encouragement w/ compliance Controlled diabetes mellitus with neurologic complication, with long-term current use of insulin Last [id number] on 04/11/23 BSG elevation w/ IV steroids on admission/pharmacy consulted for glycemic management Transitioned to PO prednisone 04/14 as above, much improved To continue home regimen at d/c and monitor BSGs Hypertension Blood pressure elevated 174/99 on admission Continued on losartan/HCTZ, additional lasix as above for diuretic effect --> BP 156/78 prior to discharge. Discussed to f/u with PCP about daily lasix vs increasing his HCTZ in follow up for continued management Reviewed low salt diet, limiting hot dogs/soups. RN to provide info on low salt diet prior to discharge (3) ADALID (obstructive sleep apnea): (4) Controlled diabetes mellitus with neurologic complication, with long-term current use of insulin: (5) Hypertension: Total Time Total Time Spent Total Time Spent (In Minutes): 45 Discharge Plan Discharge Items Patient Disposition: Home - Self-Care Reason For Visit: HYPOXIA Discharge Diagnosis: Hypoxia, COPD, possible volume overload Goals: You have been hospitalized for an acute medical problem. During your stay at [facility], we have made an effort to correct the problem that brought you to the hospital while keeping you as comfortable as possible. Medications were used to bring your condition under control and your discharge instructions will include directions for any medications you should take after leaving the hospital. Please make sure you see your Primary Care Provider as part of your follow up plan. Activity: As commented below Non-emergency contact: Primary Care Provider and Tennis Player Call non-emergency contact if: you have any medication questions, your symptoms worsen and you have a fever Follow-up/Referrals: Manan Holt MD [Primary Care Provider] - Wil Moncada MD [Physician] - Diet: Carb Consistent or DM2, Heart Healthy and Low Sodium (2gm) Ambulatory Orders: Basic Metabolic Panel (Routine) Timeframe: 20230417 Location: Determined by Patient Ordered By: Sadia Calhoun White Blood Count (Routine) Timeframe: [id number] Location: Determined by Patient Ordered By: Sadia Calhoun Add Attending Provider Instructions: You were hospitalized for low oxygen level at home. You were treated with IV steroids and diuretics and oxygen levels have improved. You still have some wheezing on exam, and are being continued on prednisone 40mg by mouth once daily to complete the course of treatment. You had a test to see if you need oxygen at discharge and this showed you did NOT require oxygen with ambulation. Pulmonology was consulted and recommended continued diuretics and steroids at discharge and you to have follow up with bone biopsy in the future for further investigation and can be discussed in follow up as already arranged with medical oncology in April. You should continue a LOW SALT diet as discussed -- this will help with blood pressure as well as a possible underlying diastolic heart failure which can contribute to fluid build up in the lungs. I have sent in a prescription for lasix (furosemide) - 20mg orally. You should monitor your weights daily at home and if any weight gain >3 pounds in a day or 5lb in a week mean that you should likely take this medication. I would recommen d taking once daily while taking the prednisone and then can monitor your weights and take as needed for weight gain/swelling. We have put in for repeat labs for Monday to ensure kidney function remains stable on diuretics. Please follow up with primary care in the next week to monitor your progress. Please return to the ER with any increased shortness of breath, low oxygen levels, fevers or for any other symptoms concerning for you. It has been a pleasure being a part of the medical team providing for you while you have been in the hospital. Take care! Pending Studies at Discharge: No Stand-Alone Forms: [facility] [employer], Smoking Cessation Medications and DC Order Prescriptions: New furosemide 20 mg tablet See Rx Instructions .ROUTE .COMPLEX Qty: 20 0RF Rx Instructions: take 20mg by mouth once daily while on prednisone, and then as needed for weight gain Continued (DME) OneTouch Ultra Blue Test Strip Strip See Rx Instructions .ROUTE .MEDSUPPLY Qty: 300 3RF Rx Instructions: test blood sugar 3 x daily potassium chloride 20 mEq tablet extended release 10 meq PO QAM Qty: 90 3RF (DME) pen needle, diabetic [BD Laurita 2nd Gen Pen Needle] 32 gauge x 5/32" needle See Rx Instructions miscellaneous .MEDSUPPLY Qty: 400 3RF Rx Instructions: Change new pen needle 4x a day terazosin 5 mg capsule 5 mg PO DAILY Qty: 90 3RF omeprazole 40 mg capsule,delayed release(DR/EC) 40 mg PO HS Qty: 90 3RF (DME) CPAP Machine Misc See Rx Instructions .MEDSUPPLY Qty: 1 0RF Rx Instructions: CPAP 10 cm of water with a C-Flex of 1 and oxygen 1 L/min bled into it, ResMed AirFit F20 medium full mask. G47.33 (DME) CPAP Supplies Misc See Rx Instructions .MEDSUPPLY Qty: 1 0RF Rx Instructions: CPAP supplies, mask, headgear, filters, tubing, water chamber. G47.33 (DME) Oxygen Home Liters Per Minute See Rx Instructions .MEDSUPPLY Qty: 1 0RF Rx Instructions: 1 L oxygen bled into the CPAP albuterol sulfate 90 mcg/actuation HFA aerosol inhaler 2 puff inhalation Q6H PRN (Reason: Shortness Of Breath Or Wheezing) Qty: 18 3RF cholecalciferol (vitamin D3) 25 mcg (1,000 unit) tablet 4,000 unit PO QAM melatonin 10 mg tablet 5 mg PO HS PRN (Reason: Insomnia) rosuvastatin 5 mg tablet 5 mg PO Q2D 90 Days Qty: 45 2RF cyanocobalamin (vitamin B-12) 1,000 mcg Tablet 1,000 mcg PO QAM aspirin [Ninoska Low Dose Aspirin] 81 mg Tablet,Delayed Release (Dr/Ec) 81 mg PO HS ascorbic acid (vitamin C) [Vitamin C] 500 mg Tablet 500 mg PO QAM omega 3-ibn-qqe-fish oil [Fish Oil] 1,000 mg (120 mg-180 mg) capsule 3 cap PO DAILY Rx Instructions: 2 tabs am, 1 tab pm losartan-hydrochlorothiazide 100-25 mg tablet 1 tab PO QAM Rx Instructions: Take 1 tablet by mouth once daily nystatin 100,000 unit/gram cream 1 applic topical BID PRN (Reason: DIRECTED) insulin aspart U-100 [Novolog FlexPen U-100 Insulin] 100 unit/mL (3 mL) insulin pen 14 unit subcut TID MDD 45 unit fluticasone furoate-vilanterol [Breo Ellipta] 100-25 mcg/dose blister with device 1 inh inhalation QPM Daily Fiber (psyllium-sucrose) 3 gram/7 gram Powder 1 tsp PO QAM milk thistle 140 mg Capsule 140 mg PO QAM Beet Root 1 tab PO DAILY timolol maleate 0.5 % drops 1 drp OPB QAM coenzyme Q10 [CoQ-10] 100 mg capsule 200 mg PO QAM insulin glargine [Lantus U-100 Insulin] 100 unit/mL solution 26 unit subcut .9:00PM Rx Instructions: Inject Lantus 1x a day 26 units. (This replaces your NPH or cloudy insulin) Discharge Orders: Discharge Order (Routine); Ordered 04/15/23 Ordered By: Sadia Brothers/Other Patient Handouts: Pulmonary Sarcoidosis Admission Data Admit Date/Time: 04/13/23 23:05 Attending Provider: Radny Mix Admit Provider: Crys Armendariz Primary Care Provider: Manan Holt Other Providers: Wil Moncada Other Interventions: Discharge Summary Assessment (RN) Last Done: 04/15/23 11:05 Supervising Physician Co-Signing Physician Notes During face to face encounter, I obtained a brief physical examination, discussed hospital stay with patient and discharge instructions with patient. I discussed discharge plan of care with [facility]. I reviewed above note and agree with it except for the following: Patient will be discharged with lasix 20 mg daily, as concern of possible hypervolemia causing hypoxia and worsening above presnetation. Recommend BMP repeat early next week. Coding Level of Care Code 66316 INP/OBS DISCH >30 MIN Diagnoses Hypoxia R09.02 COPD (chronic obstructive pulmonary disease) J44.9 COPD type: unspecified COPD ADALID (obstructive sleep apnea) G47.33 Controlled diabetes mellitus with neurologic complication, with long-term current use of insulin E11.49; Z79.4 Hypertension I10
--- NOTE | 2023-04-15 09:39 | XRay Report ---
XR chest 2V PA/lateral CLINICAL HISTORY: f/u pulmonary edema COMPARISON STUDY: Chest CT April 07, 2023. Chest radiograph April 14, 2023. FINDINGS: Mild cardiomegaly is again noted. There is no pneumothorax or pleural effusion. Additional thickening has decreased. Underlying suspected granulomatous disease is again noted, as shown on prio r CTs. IMPRESSION: 1. Resolution of pulmonary edema. 2. Underlying pulmonary nodules and mild mediastinal and bilateral hilar lymphadenopathy, better dep icted on prior chest CT. This favors a granulomatous process. Although less likely, a neoplastic proc ess cannot be excluded and continued imaging follow-up is recommended. ACT 112: Negative or not required by law. Electronically signed by: Thiago Villafuerte M.D. 04/15/2023 9:37 AM
== END 2023-04-15 11:35 | disposition home or self-care (01) ==
LOC: ED 20:39 → 3W 23:05 → SUATTDRO 23:05 → INTOOBSV 23:05 → 3W 04-14 02:47